=== PATIENT | male | born 1950 | race Caucasian/White ===

== ENCOUNTER 2017-01-25 05:04 | Inpatient (IN) | payer MEDICARE, OTHER ==
--- NOTE | 2017-01-25 05:15 | C.PDOC ---
History Of Present Illness Pt woke up with chest pain., Sharp stabbing , pressure. Received asa and 2 sl ntg by ems. Time Seen by Provider: 01/25/17 05:10 Chief Complaint (Nursing): Chest Pain History Per: Patient History/Exam Limitations: no limitations Onset/Duration Of Symptoms: Mins Current Symptoms Are (Timing): Still Present Context: Other Severity: Severe Pain Scale Rating Of: 7 Quality: Sharp, Pressure Associated Symptoms: denies: Nausea, Dyspnea Modifying Factors: None Exacerbating Factors: None Alleviating Factors: None Nitro Therapy Administered: 2 Recent travel outside of the [place]: No Additional History Per: EMS Past Medical History Reviewed: Historical Data, Nursing Documentation, Vital Signs Vital Signs: Last Vital Signs Temp 98.0 F 01/25/17 05:07 Pulse 101 H 01/25/17 05:07 Resp 16 01/25/17 05:07 BP 130/90 01/25/17 05:07 Pulse Ox 99 01/25/17 05:07 Family History: States: No Known Family Hx Review Of Systems Constitutional: Negative for: Fever, Chills Eyes: Negative for: Redness ENT: Negative for: Throat Pain Cardiovascular: Positive for: Chest Pain. Negative for: Palpitations Respiratory: Negative for: Shortness of Breath Gastrointestinal: Negative for: Nausea, Vomiting Genitourinary: Negative for: Hematuria Musculoskeletal: Negative for: Neck Pain Skin: Negative for: Rash, Lesions, Jaundice Neurological: Negative for: Weakness Psych: Negative for: Anxiety Physical Exam - Physical Exam Appears: In Acute Distress Skin: Warm, Dry Head: Normacephalic Eye(s): bilateral: Normal Inspection, PERRL, EOMI Oral Mucosa: Moist Neck: Supple Chest: Symmetrical Cardiovascular: Rhythm Regular Respiratory: No Rales, No Rhonchi, No Wheezing Gastrointestinal/Abdominal: Soft, No Tenderness, No Distention Back: No CVA Tenderness Extremity: Normal ROM Extremity: Bilateral: Atraumatic Pulses: Left Dorsalis Pedis: Normal, Right Dorsalis Pedis: Normal Neurological/Psych: Oriented x3, Normal Speech, Normal Cognition Gait: Unable To Assess ED Course And Treatment ECG: Interpreted By Me, Viewed By Me ECG Rhythm: Sinus Rhythm (68), ST/T Changes (ant wall mi) Pulse Ox Interpretation: Normal - Radiology CXR: Interpreted by Me, Viewed By Me Progress Note: 5:[address] dominguez and sent ekg. Code heart called. 5: [address] dominguez at bedside Critical Care Time - Critical Care Note Total Time (in mins): 30 Documented critical care: time excludes all time spent performing seperately billable procedures. Disposition Discussed With : Lalo Ruiz Comment: accepted the pt on his service and tookover the care at 5:42 AM Doctor Will See Patient In The: ED Counseled Patient/Family Regarding: Studies Performed, Diagnosis - Disposition Disposition: HOSPITALIZED Disposition Time: 05:19 Condition: GUARDED Forms: [employer] (Ukrainian) - POA Present On Arrival: None - Clinical Impression Clinical Impression: Acute anterior wall IA Decision To Admit - Pt Status Changed To: Hospital Disposition Of: Inpatient - Admit Certification Admit to Inpatient:: After my assessment, the patient will require hospitalization for at least two midnights. This is because of the severity of symptoms shown, intensity of services needed, and/or the medical risk in this patient being treated as an outpatient. - InPatient: Physician Admission Certification: I certify that this patient requires 2 or more midnights of care for the following reason:: After my assessment, the patient will require hospitalization for at least two midnights. This is because of the severity of symptoms shown, intensity of services needed, and/or the medical risk in this patient being treated as an outpatient. - . Bed Request Type: ICU Admitting Physician: Lalo Ruiz Patient Diagnosis: Acute anterior wall IA
[2017-01-25] MEDS ORDERED: Aspirin 325 mg EC Tablets PO STA (05:16)
[2017-01-25] MEDS ORDERED: Heparin25000 units/250ml 1/2NS 250 ML IV STA (05:16)
[2017-01-25] MEDS ORDERED: Heparin25000 units/250ml 1/2NS 25,000 UNITS/250 ML BAG IV ONE (05:25)
[2017-01-25] MEDS ORDERED: Morphine 4 MG/ML VIAL ONE (05:30)
[2017-01-25] MEDS ORDERED: Midazolam 2 MG/2 ML VIAL ONE (05:43)
[2017-01-25] MEDS ORDERED: Iodixanol 320 MG/ML 200 ML BOTTLE IV ONE (05:43)
[2017-01-25] MEDS ORDERED: Lidocaine 2 Grams in D5W 2,000 MG/500 ML BAG IV ONE (05:45)
[2017-01-25] MEDS ORDERED: DOPamine 400mg/250ml D5W 0 MG/0 ML BAG IV ONE (05:46)
[2017-01-25] MEDS ORDERED: Phenylephrine 10 mg/ml Inj ONE (05:46)
[2017-01-25 05:51] LABS: CHLORIDE 102 mmol/L (98-107); POTASSIUM 3.7 mmol/L (3.6-5.2); SODIUM 139 mmol/L (132-148)
[2017-01-25 05:53] LABS: BILIRUBIN,TOTAL 0.5 mg/dL (0.2-1.3); CARBON DIOXIDE 20 mmol/L (22-30); GFR AFRICAN-AMERICAN > 60
[2017-01-25 05:54] LABS: ALB/GLOB RATIO 1.3 (1.0-2.1); ALKALINE PHOSPHATASE 66 U/L (38-126); ALT/SGPT 29 U/L (21-72); AST/SGOT 34 U/L (17-59); BLOOD UREA NITROGEN 26 mg/dL (9-20); CALCIUM 9.5 mg/dl (8.6-10.4); GLUCOSE,RANDOM 147 mg/dL (75-110); TOTAL PROTEIN 7.7 g/dL (6.3-8.3)
[2017-01-25] MEDS ORDERED: Eptifibatide 0.75 mg/ml 75 MG/100 ML BOTTLE IV ONE (06:14)
[2017-01-25] MEDS ORDERED: Eptifibatide 20 mg/10mL Inj IVP ONE (06:15)
[2017-01-25] MEDS ORDERED: Nitroglycerin 50mg in D5W 50 MG/250 ML BOTTLE IV ONE (06:21)
--- NOTE | 2017-01-25 06:46 | CP.PCM.HP ---
<Thomas Buenrostro - Last Filed: 01/25/17 06:49> History of Present Illness - History of Present Illness History of Present Illness: PGY1 Note for Dr. Ruiz HPI: Patient is a 66 y/o male with a PMH of HTN, HLD who comes to the ER with a CC of chest pain that he woke up with at 0430. Patient has never had this pain before. He says it is most on the left side. He was brought in by ambulance where he said the pain was 10/10. He was given 2 doses of SL nitro and the pain was reduced to a 8/10. In the ER a Code Hear was called and Dr. Feng was alerted. EKG showed ST elevations in the the Anterior and lateral leads. He was given 325mg ASA, 4g morphine, 180mg brillinta, heparin bolus 5000K and a heparin drip at a rate of 9.3. Patient was placed on oxygen and brought to the laborer hoisting. PMH: HTN, HLD PSH: Appy? FH: none SH: doesnt smoke Meds: Coreg, Enalapril, allopurinol Allergies: None Present on Admission - Present on Admission Any Indicators Present on Admission: No History of DVT/PE: No History of Uncontrolled Diabetes: No Urinary Catheter: No Decubitus Ulcer Present: No History Surgical Site Infection Following: None Review of Systems - Constitutional Constitutional: As Per HPI - EENT Eyes: As Per HPI Ears: As Per HPI Nose/Mouth/Throat: As Per HPI - Cardiovascular Cardiovascular: As Per HPI - Respiratory Respiratory: As Per HPI - Gastrointestinal Gastrointestinal: As Per HPI - Genitourinary Genitourinary: As Per HPI - Reproductive: Male Reproductive:Male: As Per HPI - Musculoskeletal Musculoskeletal: As Per HPI - Integumentary Integumentary: As Per HPI - Neurological Neurological: As Per HPI - Psychiatric Psychiatric: As Per HPI - Endocrine Endocrine: As Per HPI - Hematologic/Lymphatic Hematologic: As Per HPI Past Patient History - Past Social History Smoking Status: Never Smoked - CARDIAC Hx Hypertension: Yes - MUSCULOSKELETAL/RHEUMATOLOGICAL Hx Gout: Yes - PSYCHIATRIC Hx Substance Use: No - SURGICAL HISTORY Hx Appendectomy: Yes Meds Allergies/Adverse Reactions: Allergies Allergy/AdvReac Type Severity Reaction Status Date / Time No Known Allergies Allergy Verified 01/25/17 05:13 Physical Exam - Constitutional Appears: In Acute Distress - Head Exam Head Exam: ATRAUMATIC, NORMAL INSPECTION, NORMOCEPHALIC - Eye Exam Eye Exam: EOMI Pupil Exam: NORMAL ACCOMODATION, PERRL - ENT Exam ENT Exam: Mucous Membranes Moist - Respiratory Exam Respiratory Exam: Clear to Auscultation Bilateral, NORMAL BREATHING PATTERN. absent: Rales, Wheezes, Stridor - Cardiovascular Exam Cardiovascular Exam: REGULAR RHYTHM - GI/Abdominal Exam GI & Abdominal Exam: Normal Bowel Sounds, Soft. absent: Distended, Tenderness - Extremities Exam Extremities exam: Negative for: joint swelling, tenderness - Neurological Exam Neurological exam: Alert, Oriented x3 - Psychiatric Exam Psychiatric exam: Normal Affect, Normal Mood - Skin Skin Exam: Dry, Intact, Normal Color, Warm Results - Vital Signs Recent Vital Signs: Last Vital Signs Temp 98.0 F 01/25/17 05:07 Pulse 62 01/25/17 05:37 Resp 20 01/25/17 05:37 BP 133/95 H 01/25/17 05:37 Pulse Ox 100 01/25/17 05:37 - Labs Result Diagrams: 01/25/17 05:36 Labs: Laboratory Results - last 24 hr 01/25/17 01/25/17 01/25/17 05:36 05:36 05:41 PT 10.7 INR 1.0 APTT 30 Sodium 139 Potassium 3.7 Chloride 102 Carbon Dioxide 20 L Anion Gap 21 H BUN 26 H Creatinine 1.0 Est GFR ( Amer) > 60 Est GFR (Non-Af Amer) > 60 Random Glucose 147 H Calcium 9.5 Total Bilirubin 0.5 AST 34 ALT 29 Alkaline Phosphatase 66 Total Protein 7.7 Albumin 4.4 Globulin 3.3 Albumin/Globulin Ratio 1.3 Blood Type O POSITIVE Antibody Screen Negative Assessment & Plan - Assessment and Plan (Free Text) Assessment: Anterolateral NV (Code Heart) * Heparin, Morphine, ASA, Brilinta, O2 SL Nitro given in ER * Cards (Jung) called * Patient went to laborer hoisting * Meds per Cards Elevated Glucose * Accuchecks - Date & Time Date: 01/25/17 Time: 06:58 <Lalo Ruiz - Last Filed: 01/25/17 07:30> Results - Vital Signs Recent Vital Signs: Last Vital Signs Temp 98.0 F 01/25/17 05:07 Pulse 62 01/25/17 05:37 Resp 20 01/25/17 05:37 BP 133/95 H 01/25/17 05:37 Pulse Ox 100 01/25/17 05:37 - Labs Result Diagrams: 01/25/17 05:36 Labs: Laboratory Results - last 24 hr 01/25/17 01/25/17 01/25/17 05:36 05:36 05:36 PT 10.7 INR 1.0 APTT 30 Sodium 139 Potassium 3.7 Chloride 102 Carbon Dioxide 20 L Anion Gap 21 H BUN 26 H Creatinine 1.0 Est GFR ( Amer) > 60 Est GFR (Non-Af Amer) > 60 Random Glucose 147 H Calcium 9.5 Total Bilirubin 0.5 AST 34 ALT 29 Alkaline Phosphatase 66 Troponin I < 0.0120 Total Protein 7.7 Albumin 4.4 Globulin 3.3 Albumin/Globulin Ratio 1.3 Blood Type Antibody Screen 01/25/17 05:41 PT INR APTT Sodium Potassium Chloride Carbon Dioxide Anion Gap BUN Creatinine Est GFR ( Amer) Est GFR (Non-Af Amer) Random Glucose Calcium Total Bilirubin AST ALT Alkaline Phosphatase Troponin I Total Protein Albumin Globulin Albumin/Globulin Ratio Blood Type O POSITIVE Antibody Screen Negative Attending/Attestation - Attestation I have personally seen and examined this patient.: Yes I have fully participated in the care of the patient.: Yes I have reviewed all pertinent clinical information: Yes Notes (Text): Assessment Anterior STEMI, s/p cath 100% LAD occlusion, s/p long FLOR stent and thrombectomy, received ASA, Brilianta, started on Integrillin for 12 hr H/o HTN H/o Gout Plan Observe post pci in icu Cardioprotective meds Coreg 3.125 bid, Enalpril 5mg bid from tomorrow, ASA 81mg daily from tomorrow, Brilianta 90mg bid, crestor 40mg daily, integrillin for 12 hr, continue home dose allopurinol Echo GI prophylaxis protonix 40mg DVT prophylaxis heparin subq from tomorrow Labs See orders for detail
--- NOTE | 2017-01-25 06:57 | CP.PCM.PN ---
Subjective - Date & Time of Evaluation Date of Evaluation: 01/25/17 Time of Evaluation: 06:00 - Subjective Subjective: Assessment * Anterior STEMI, s/p cath 100% LAD occlusion, s/p long FLOR stent and thrombectomy, received ASA, Brilianta, started on Integrillin for 12 hr * H/o HTN * H/o Gout Plan * Observe post pci in icu * Cardioprotective meds Coreg 3.125 bid, Enalpril 5mg bid from tomorrow, ASA 81mg daily from tomorrow, Brilianta 90mg bid, crestor 40mg daily, integrillin for 12 hr, continue home dose allopurinol * Echo * GI prophylaxis protonix 40mg * DVT prophylaxis heparin subq from tomorrow * Labs * See orders for detail Objective - Vital Signs/Intake and Output Vital Signs (last 24 hours): Temp Pulse Resp BP Pulse Ox 98.0 F 62 20 133/95 H 100 01/25/17 05:07 01/25/17 05:37 01/25/17 05:37 01/25/17 05:37 01/25/17 05:37 - Medications Medications: Current Medications Acetaminophen (Tylenol 325mg Tab) 650 mg PO Q6 PRN PRN Reason: Pain, moderate (4-7) Allopurinol (Zyloprim) 300 mg PO DAILY [facility] Aspirin (Aspirin Chewable) 81 mg PO DAILY [facility] Carvedilol (Coreg) 3.125 mg PO BID [facility] Enalapril Maleate (Vasotec) 5 mg PO DAILY [facility] Heparin Sodium (Porcine) (Heparin) 5,000 units SC Q8 [facility] Heparin Sodium/Sodium Chloride (Heparin 09257 Units/250ml 1/2 Normal Saline) 25 ,000 units in 250 mls @ 10 mls/hr IV ONCE ONE PRN Reason: 1,000 UNITS/HR Stop: 01/26/17 06:24 Last Admin: 01/25/17 05:38 Dose: 10 mls/hr Sodium Chloride (Sodium Chloride 0.9%) 1,000 mls @ 100 mls/hr IV .Q10H [facility] Pantoprazole Sodium (Protonix Ec Tab) 40 mg PO DAILY [facility] Rosuvastatin Calcium (Crestor) 40 mg PO DAILY [facility] Ticagrelor (Brilinta) 90 mg PO BID [facility] - Labs Labs: 01/25/17 05:36 PT 10.7 SECONDS (9.7-12.2) 01/25/17 05:36 INR 1.0 01/25/17 05:36 APTT 30 SECONDS (21-34) 01/25/17 05:36
--- NOTE | 2017-01-25 07:43 | CP.PCM.CON ---
History of Present Illness - History of Present Illness History of Present Illness: Patient presented with Acute Anterolateral STEMI Code heart was activated After informed consent LHC and LAD intervention with FLOR performed 1. L Main: Patent 2. LAD: Proximal 100% with HEATHER 0 flow 3. L Cx: Patent 4. RCA: Dominant and patent 5. LV: Post intervention: Normal EF. EDP 10, No AV gradient LAD: Lesion fixed with 3.0 x 38 Xcience Alpine FLOR with excellent final angiographic result and HEATHER 3 flow Further plan joselo d/w discussed with the ICU team Post procedure details explained to the patient and the family ( and daughter) Past Patient History - Past Social History Smoking Status: Never Smoked - CARDIAC Hx Hypertension: Yes - MUSCULOSKELETAL/RHEUMATOLOGICAL Hx Gout: Yes - PSYCHIATRIC Hx Substance Use: No - SURGICAL HISTORY Hx Appendectomy: Yes Meds Allergies/Adverse Reactions: Allergies Allergy/AdvReac Type Severity Reaction Status Date / Time No Known Allergies Allergy Verified 01/25/17 05:13 - Medications Medications: Current Medications Acetaminophen (Tylenol 325mg Tab) 650 mg PO Q6 PRN PRN Reason: Pain, moderate (4-7) Allopurinol (Zyloprim) 300 mg PO DAILY [facility] Aspirin (Aspirin Chewable) 81 mg PO DAILY [facility] Carvedilol (Coreg) 3.125 mg PO BID [facility] Enalapril Maleate (Vasotec) 5 mg PO DAILY [facility] Heparin Sodium (Porcine) (Heparin) 5,000 units SC Q8 [facility] Sodium Chloride (Sodium Chloride 0.9%) 1,000 mls @ 100 mls/hr IV .Q10H [facility] Pantoprazole Sodium (Protonix Ec Tab) 40 mg PO DAILY [facility] Rosuvastatin Calcium (Crestor) 40 mg PO DAILY [facility] Ticagrelor (Brilinta) 90 mg PO BID [facility] Results - Vital Signs Recent Vital Signs: Last Vital Signs Temp 98.0 F 01/25/17 05:07 Pulse 62 01/25/17 05:37 Resp 20 01/25/17 05:37 BP 133/95 H 01/25/17 05:37 Pulse Ox 100 01/25/17 05:37 - Labs Result Diagrams: 01/25/17 05:36 Labs: Laboratory Results - last 24 hr 01/25/17 01/25/17 01/25/17 05:36 05:36 05:36 PT 10.7 INR 1.0 APTT 30 Sodium 139 Potassium 3.7 Chloride 102 Carbon Dioxide 20 L Anion Gap 21 H BUN 26 H Creatinine 1.0 Est GFR ( Amer) > 60 Est GFR (Non-Af Amer) > 60 Random Glucose 147 H Calcium 9.5 Total Bilirubin 0.5 AST 34 ALT 29 Alkaline Phosphatase 66 Troponin I < 0.0120 Total Protein 7.7 Albumin 4.4 Globulin 3.3 Albumin/Globulin Ratio 1.3 Blood Type Antibody Screen 01/25/17 05:41 PT INR APTT Sodium Potassium Chloride Carbon Dioxide Anion Gap BUN Creatinine Est GFR ( Amer) Est GFR (Non-Af Amer) Random Glucose Calcium Total Bilirubin AST ALT Alkaline Phosphatase Troponin I Total Protein Albumin Globulin Albumin/Globulin Ratio Blood Type O POSITIVE Antibody Screen Negative
[2017-01-25 07:55] LABS: BASO % 0.3 % (0.0-2.0); EOS # 0.1 K/uL (0.0-0.7); EOS % 1.2 % (0.0-4.0); HEMATOCRIT 40.6 % (35.0-51.0); LYMPH % 51.5 % (20.0-40.0); MEAN CELL VOLUME 86.1 fL (80.0-94.0); MEAN CORPUSCULAR HEMOGLOBIN 30.2 pg (27.0-31.0); MEAN PLATELET VOLUME 10.4 fL (7.2-11.7); MONO # 1.2 K/uL (0.0-0.8); MONO % 12.6 % (0.0-10.0); RED CELL DISTRIBUTION WIDTH 13.2 % (11.5-14.5); WHITE BLOOD COUNT 9.8 K/uL (4.8-10.8)
[2017-01-25] MEDS: Sodium Chloride 0.9% 1,000 ML IV SCH ×2 (07:55→18:05)
--- NOTE | 2017-01-25 08:06 | RAD ---
PROCEDURE: CHEST RADIOGRAPH, 1 VIEW HISTORY: chest pain COMPARISON: None available. FINDINGS: LUNGS: Mild venous congestion. PLEURA: No pneumothorax or pleural fluid seen. CARDIOVASCULAR: Normal. OSSEOUS STRUCTURES: No significant abnormalities. VISUALIZED UPPER ABDOMEN: Normal. OTHER FINDINGS: None. IMPRESSION: Mild venous congestion.
[2017-01-25] MEDS: Eptifibatide 0.75 mg/ml 75 MG/100 ML BOTTLE IV SCH ×3 (08:17→16:07)
--- NOTE | 2017-01-25 08:41 | CP.CCUPN ---
CCU Subjective - Physician Review Events Since Last Encounter (Free Text): 01/25/17 08:40 HPI: Patient is a 66 y/o male with a PMH of HTN, HLD who comes to the ER with a CC of chest pain that he woke up with at 0430. Patient has never had this pain before. He says it is most on the left side. He was brought in by ambulance where he said the pain was 10/10. He was given 2 doses of SL nitro and the pain was reduced to a 8/10. In the ER a Code Hear was called and Dr. Feng was alerted. EKG showed ST elevations in the the Anterior and lateral leads. He was given 325mg ASA, 4g morphine, 180mg brillinta, heparin bolus 5000K and a heparin drip at a rate of 9.3. Patient was placed on oxygen and brought to the fence laborer. PMH: HTN, HLD PSH: Appy? FH: none SH: doesnt smoke Meds: Coreg, Enalapril, allopurinol Allergies: None Vital signs reviewed No neck vein distention noted Chest good air entry bilaterally, no wheezing or rales noted CVS regular heart sound, no murmur noted Abdomen soft, nontender. Extremities no pedal edema [employer] alert awake oriented 3, no functional neurological deficit On Integrilin drip. Assessment and recommendation: 66 male hypertension high cholesterol admitted with the chest pain. ST elevation. Status post a stent. Closely monitor. Cardiology follow-up CCU Objective - Vital Signs / Intake & Output Vital Signs (Last 4 hours): Vital Signs Temp Pulse Resp BP Pulse Ox 01/25/17 08:00 97.6 F 70 12 100 01/25/17 07:52 75 15 119/77 100 01/25/17 07:50 78 13 100 01/25/17 07:40 71 10 L 100 01/25/17 07:37 69 15 99/67 L 99 01/25/17 07:30 97.6 F 67 18 117/79 99 01/25/17 07:20 67 13 100 01/25/17 07:10 71 14 100 01/25/17 07:00 71 9 L 100 01/25/17 05:37 62 20 133/95 H 100 01/25/17 05:32 63 20 133/87 100 01/25/17 05:12 64 130/90 01/25/17 05:07 98.0 F 101 H 16 130/90 99 Intake and Output (Last 8hrs): Intake & Output 01/24/17 01/25/17 01/25/17 22:59 06:59 14:59 Intake Total 112.3 Output Total 325 Balance -212.7 Weight 170 lb Intake: Intake, IV Amount 112.3 Right Antecubital 100 Right Hand 12.3 Output: Urine 325 Urine, Voided 325 - Medications Active Medications: Active Medications Generic Name Dose Route Start Last Admin Trade Name Freq PRN Reason Stop Dose Admin Acetaminophen 650 mg 01/25/17 06:43 Tylenol 325mg Tab PO Q6 PRN Pain, moderate (4-7) Allopurinol 300 mg 01/25/17 10:00 Zyloprim PO DAILY [facility] Aspirin 81 mg 01/26/17 10:00 Aspirin Chewable PO DAILY [facility] Carvedilol 3.125 mg 01/25/17 10:00 Coreg PO BID [facility] Enalapril Maleate 5 mg 01/26/17 10:00 Vasotec PO DAILY [facility] Heparin Sodium (Porcine) 5,000 units 01/26/17 10:00 Heparin SC Q8 [facility] Sodium Chloride 1,000 mls @ 100 mls/hr 01/25/17 06:45 01/25/17 07:55 Sodium Chloride 0.9% IV 100 mls/hr .Q10H [facility] Administration Eptifibatide 75 mg in 100 mls @ 12.029 mls/hr 01/25/17 07:45 01/25/17 08:17 Integrilin IV 01/25/17 19:46 12.029 mls/hr .Q8H19M [facility] Administration 2 MCG/KG/MIN Pantoprazole Sodium 40 mg 01/25/17 10:00 Protonix Ec Tab PO DAILY [facility] Rosuvastatin Calcium 40 mg 01/25/17 10:00 Crestor PO DAILY [facility] Ticagrelor 90 mg 01/25/17 18:00 Brilinta PO BID [facility] - Patient Studies Lab Studies: Lab Studies 01/25/17 01/25/17 01/25/17 Range/Units 07:56 05:41 05:36 WBC (4.8-10.8) K/uL RBC (4.40-5.90) Mil/uL Hgb (12.0-18.0) g/dL Hct (35.0-51.0) % MCV (80.0-94.0) fL MCH (27.0-31.0) pg MCHC (33.0-37.0) g/dL RDW (11.5-14.5) % Plt Count (130-400) K/uL MPV (7.2-11.7) fL Neut % (Auto) (50.0-75.0) % Lymph % (Auto) (20.0-40.0) % [place] % (Auto) (0.0-10.0) % Eos % (Auto) (0.0-4.0) % Baso % (Auto) (0.0-2.0) % Neut # (1.8-7.0) K/uL Lymph # (1.0-4.3) K/uL [place] # (0.0-0.8) K/uL Eos # (0.0-0.7) K/uL Baso # (0.0-0.2) K/uL PT (9.7-12.2) SECONDS INR APTT (21-34) SECONDS Sodium (132-148) mmol/L Potassium (3.6-5.2) mmol/L Chloride (98-107) mmol/L Carbon Dioxide (22-30) mmol/L Anion Gap (10-20) BUN (9-20) mg/dL Creatinine (0.8-1.5) MG/DL Est GFR ( Amer) Est GFR (Non-Af Amer) POC Glucose (mg/dL) 129 H (65-110) mg/dL Random Glucose (75-110) mg/dL Calcium (8.6-10.4) mg/dl Total Bilirubin (0.2-1.3) mg/dL AST (17-59) U/L ALT (21-72) U/L Alkaline Phosphatase (38-126) U/L Troponin I < 0.0120 (0.00-0.120) ng/mL Total Protein (6.3-8.3) g/dL Albumin (3.5-5.0) g/dL Globulin (2.2-3.9) gm/dL Albumin/Globulin Ratio (1.0-2.1) Blood Type O POSITIVE Antibody Screen Negative 09/01/25/17 01/25/17 Range/Units 05:36 05:36 05:36 WBC 9.8 (4.8-10.8) K/uL RBC 4.71 (4.40-5.90) Mil/uL Hgb 14.2 (12.0-18.0) g/dL Hct 40.6 (35.0-51.0) % MCV 86.1 D (80.0-94.0) fL MCH 30.2 (27.0-31.0) pg MCHC 35.0 (33.0-37.0) g/dL RDW 13.2 (11.5-14.5) % Plt Count 208 (130-400) K/uL MPV 10.4 (7.2-11.7) fL Neut % (Auto) 34.4 L (50.0-75.0) % Lymph % (Auto) 51.5 H (20.0-40.0) % [place] % (Auto) 12.6 H (0.0-10.0) % Eos % (Auto) 1.2 (0.0-4.0) % Baso % (Auto) 0.3 (0.0-2.0) % Neut # 3.4 (1.8-7.0) K/uL Lymph # 5.0 H (1.0-4.3) K/uL [place] # 1.2 H (0.0-0.8) K/uL Eos # 0.1 (0.0-0.7) K/uL Baso # 0.0 (0.0-0.2) K/uL PT 10.7 (9.7-12.2) SECONDS INR 1.0 APTT 30 (21-34) SECONDS Sodium 139 (132-148) mmol/L Potassium 3.7 (3.6-5.2) mmol/L Chloride 102 (98-107) mmol/L Carbon Dioxide 20 L (22-30) mmol/L Anion Gap 21 H (10-20) BUN 26 H (9-20) mg/dL Creatinine 1.0 (0.8-1.5) MG/DL Est GFR ( Amer) > 60 Est GFR (Non-Af Amer) > 60 POC Glucose (mg/dL) (65-110) mg/dL Random Glucose 147 H (75-110) mg/dL Calcium 9.5 (8.6-10.4) mg/dl Total Bilirubin 0.5 (0.2-1.3) mg/dL AST 34 (17-59) U/L ALT 29 (21-72) U/L Alkaline Phosphatase 66 (38-126) U/L Troponin I (0.00-0.120) ng/mL Total Protein 7.7 (6.3-8.3) g/dL Albumin 4.4 (3.5-5.0) g/dL Globulin 3.3 (2.2-3.9) gm/dL Albumin/Globulin Ratio 1.3 (1.0-2.1) Blood Type Antibody Screen Laboratory Results - last 24 hr 01/25/17 01/25/17 01/25/17 05:36 05:36 05:36 WBC 9.8 RBC 4.71 Hgb 14.2 Hct 40.6 MCV 86.1 D MCH 30.2 MCHC 35.0 RDW 13.2 Plt Count 208 MPV 10.4 Neut % (Auto) 34.4 L Lymph % (Auto) 51.5 H [place] % (Auto) 12.6 H Eos % (Auto) 1.2 Baso % (Auto) 0.3 Neut # 3.4 Lymph # 5.0 H [place] # 1.2 H Eos # 0.1 Baso # 0.0 PT 10.7 INR 1.0 APTT 30 Sodium 139 Potassium 3.7 Chloride 102 Carbon Dioxide 20 L Anion Gap 21 H BUN 26 H Creatinine 1.0 Est GFR ( Amer) > 60 Est GFR (Non-Af Amer) > 60 POC Glucose (mg/dL) Random Glucose 147 H Calcium 9.5 Total Bilirubin 0.5 AST 34 ALT 29 Alkaline Phosphatase 66 Troponin I Total Protein 7.7 Albumin 4.4 Globulin 3.3 Albumin/Globulin Ratio 1.3 Blood Type Antibody Screen 01/25/17 01/25/17 01/25/17 05:36 05:41 07:56 WBC RBC Hgb Hct MCV MCH MCHC RDW Plt Count MPV Neut % (Auto) Lymph % (Auto) [place] % (Auto) Eos % (Auto) Baso % (Auto) Neut # Lymph # [place] # Eos # Baso # PT INR APTT Sodium Potassium Chloride Carbon Dioxide Anion Gap BUN Creatinine Est GFR ( Amer) Est GFR (Non-Af Amer) POC Glucose (mg/dL) 129 H Random Glucose Calcium Total Bilirubin AST ALT Alkaline Phosphatase Troponin I < 0.0120 Total Protein Albumin Globulin Albumin/Globulin Ratio Blood Type O POSITIVE Antibody Screen Negative EKG/Cardiology Studies: Cardiology / EKG Studies 01/25/17 05:16 ELECTROCARDIOGRAM Stat Comment: Mode Of Transportation: BED Reason For Exam: chest pain Critical Care Progress Note - Nutrition Nutrition: Nutrition Category Date Time Status Heart Healthy Diet [DIET] Diets 01/25/17 Breakfast Active
[2017-01-25 09:05] LABS: CHOLESTEROL 124 mg/dL (0-199)
[2017-01-25 09:06] LABS: ALB/GLOB RATIO 1.3 (1.0-2.1); ALKALINE PHOSPHATASE 61 U/L (38-126); ALT/SGPT 41 U/L (21-72); AST/SGOT 65 U/L (17-59); BILIRUBIN,DIRECT 0.2 mg/dL (0.0-0.4); BILIRUBIN,TOTAL 0.6 mg/dL (0.2-1.3); MAGNESIUM 1.9 mg/dL (1.6-2.3); PHOSPHOROUS 1.3 mg/dL (2.5-4.5); TOTAL PROTEIN 6.3 g/dL (6.3-8.3); URIC ACID 5.3 mg/dL (3.5-8.5)
[2017-01-25 09:45] LABS: CHLORIDE 104 mmol/L (98-107)
[2017-01-25 09:46] LABS: POTASSIUM 3.7 mmol/L (3.6-5.2); SODIUM 138 mmol/L (132-148)
[2017-01-25 09:48] LABS: GFR AFRICAN-AMERICAN > 60
[2017-01-25 09:49] LABS: BLOOD UREA NITROGEN 24 mg/dL (9-20); CALCIUM 8.4 mg/dl (8.6-10.4); CARBON DIOXIDE 21 mmol/L (22-30); GLUCOSE,RANDOM 101 mg/dL (75-110)
[2017-01-25] MEDS: Pantoprazole 40 mg EC Tab PO SCH (10:13)
[2017-01-25 11:53] LABS: BASO % 0.2 % (0.0-2.0); EOS % 0.2 % (0.0-4.0); HEMATOCRIT 38.5 % (35.0-51.0); LYMPH # 2.2 K/uL (1.0-4.3); LYMPH % 30.2 % (20.0-40.0); MEAN CELL VOLUME 86.7 fL (80.0-94.0); MEAN CORPUSCULAR HEMOGLOBIN 29.9 pg (27.0-31.0); MEAN CORPUSCULAR HGB CONC 34.5 g/dL (33.0-37.0); MEAN PLATELET VOLUME 10.1 fL (7.2-11.7); MONO # 0.7 K/uL (0.0-0.8); MONO % 9.4 % (0.0-10.0); RED CELL DISTRIBUTION WIDTH 13.2 % (11.5-14.5); WHITE BLOOD COUNT 7.4 K/uL (4.8-10.8)
[2017-01-25] MEDS ORDERED: Oxycodone/Acetaminophen 5/325 mg Tab PO PRN (12:00)
--- NOTE | 2017-01-25 12:08 | CP.PCM.PCO ---
Physician Communication Note - Physician Communication Note Physician Communication Note: I updated his PMD Dr Justin Real.Patient is S/P stenting to prox LAD.
--- NOTE | 2017-01-25 12:11 | CP.PCM.PN ---
Subjective - Date & Time of Evaluation Date of Evaluation: 01/25/17 Time of Evaluation: 12:00 - Subjective Subjective: This is a BRIEF NOTE ONLY: Please see today's H&P for further details. The patient is S/P FLOR to the proximal LAD. Currently on an integrillin ggt He reports that currently he feels well. Family is present at bedside. I spoke with the patient's PMD and updated him. Objective - Vital Signs/Intake and Output Vital Signs (last 24 hours): Temp Pulse Resp BP Pulse Ox 97.6 F 66 12 122/79 100 01/25/17 08:00 01/25/17 11:10 01/25/17 11:10 01/25/17 11:02 01/25/17 11:10 Intake and Output: 01/25/17 01/25/17 06:59 18:59 Intake Total 761.5 Output Total 775 Balance -13.5 - Medications Medications: Current Medications Acetaminophen (Tylenol 325mg Tab) 650 mg PO Q6 PRN PRN Reason: Pain, moderate (4-7) Allopurinol (Zyloprim) 300 mg PO DAILY [facility] Aspirin (Aspirin Chewable) 81 mg PO DAILY [facility] Carvedilol (Coreg) 3.125 mg PO BID [facility] Last Admin: 01/25/17 10:13 Dose: 3.125 mg Enalapril Maleate (Vasotec) 5 mg PO DAILY [facility] Heparin Sodium (Porcine) (Heparin) 5,000 units SC Q8 [facility] Sodium Chloride (Sodium Chloride 0.9%) 1,000 mls @ 100 mls/hr IV .Q10H [facility] Last Admin: 01/25/17 07:55 Dose: 100 mls/hr Eptifibatide (Integrilin) 75 mg in 100 mls @ 12.029 mls/hr IV .Q8H19M [facility] PRN Reason: 2 MCG/KG/MIN Stop: 01/25/17 19:46 Last Admin: 01/25/17 08:17 Dose: 12.029 mls/hr Influenza Virus Vaccine (Afluria) 45 mcg IM .ONCE ONE Stop: 01/27/17 10:01 Oxycodone/Acetaminophen (Percocet 5/325 Mg Tab) 1 tab PO Q4H PRN PRN Reason: Pain, severe (8-10) Stop: 09/27/17 12:01 Pantoprazole Sodium (Protonix Ec Tab) 40 mg PO DAILY [facility] Last Admin: 01/25/17 10:13 Dose: 40 mg Pneumococcal Polyvalent Vaccine (Pneumovax 23 Vaccine) 0.5 ml IM .ONCE ONE Stop: 01/27/17 10:01 Rosuvastatin Calcium (Crestor) 40 mg PO [facility] Ticagrelor (Brilinta) 90 mg PO BID [facility] - Labs Labs: 01/25/17 11:50 01/25/17 08:10 PT 10.7 SECONDS (9.7-12.2) 01/25/17 05:36 INR 1.0 01/25/17 05:36 APTT 30 SECONDS (21-34) 01/25/17 05:36
[2017-01-25 14:33] LABS: RBC URINE 1 /hpf (0-3); URINE BILIRUBIN NEGATIVE (NEGATIVE); URINE BLOOD 1+ (NEGATIVE); URINE COLOR Straw (YELLOW); URINE GLUCOSE (UA) NORMAL (Normal); URINE KETONE NEGATIVE (NEGATIVE); URINE LEUKOCYTE ESTERASE NEG Leu/uL (Negative); URINE PROTEIN NEGATIVE (NEGATIVE); URINE UROBILINOGEN NORMAL mg/dL (0.2-1.0); WBC URINE 1 /hpf (0-5)
[2017-01-25] MEDS: Magnesium Sulfate 1 gm in D5W 1 GM/100 ML BAG IVPB SCH ×2 (14:36→15:11)
--- NOTE | 2017-01-26 05:18 | CARDCATH ---
PROCEDURE DATE: 01/25/2017 PROCEDURES: 1. Left heart catheterization. 2. Coronary angiography. 3. Left anterior descending coronary artery, balloon angioplasty, and drug-eluting stent placements. 4. Radiological supervision and interpretation of coronary angiography, left ventricular angiography and left anterior descending coronary artery stent placement. CLINICAL INDICATIONS: 1. Acute anterior wall ST elevation myocardial infarction. 2. Coronary artery disease. 3. Hypertension. 4. Hyperlipidemia. 5. Gout. REFERRING PHYSICIAN: Dr. Christel Quesada. PERFORMING PHYSICIAN: Dr. Thomas Feng. PROCEDURE: After informed consent, the patient was prepped and draped in the usual sterile fashion. A 2% lidocaine was given in the right groin for local anesthesia. Using micropuncture technique, a 6-Kosovan sheath was introduced in the right common femoral artery. Prior to the procedure, the patient was preloaded with aspirin, Brilinta, and IV heparin. ACT was maintained above 250 throughout the procedure. Right coronary artery was engaged using No-Tox 6-Kosovan diagnostic catheter. Right coronary angiography was performed. Proximal, mid, and distal right coronary artery and PDA, PLV branches are patent. It is a dominant right coronary artery. Left main coronary artery was engaged using XBLAD 3.5 6-Kosovan guide catheter. Left coronary angiography was performed. Left main is totally occluded in the mid region. Left circumflex coronary artery and obtuse margins branches are patent. Using the run through coronary wire, mid left anterior descending coronary artery lesion was crossed. The lesion was predilated using 2.5 x 12 compliant balloon. The long [id number] LAD lesion was stented using 3.0 x 38 vent-solvent right LAD stent. Excellent panel angiographic results with brisk HEATHER 3 flow noted. Using the 0.035 wire pigtail catheter pushed into left ventricle across the aortic valve. LV angiography has revealed no wall motion abnormalities. EDP is 12. LV ejection fraction is approximately 55 to 60%. Pullback was performed. No gradient across the aortic valve. CONCLUSIONS: 1. Radiological interpretation and supervision of the coronary angiography, the LV angiography, and LAD stent placement. 2. The patient present with acute anterior wall AL secondary to total occlusion of the LAD. Successful intervention of the drug eluting stent placement. 3. Normal LV systolic function. RECOMMENDATIONS: Recommend dual antiplatelet therapy for one year, then aspirin, statin, and beta-blockers for life. The patient will be transferred to intensive care unit with Integrilin drip for 12 hours. Further management will be decided once the patient arrives at intensive care unit. Thomas Feng MD
[2017-01-26 06:41] LABS: MEAN CELL VOLUME 87.4 fL (80.0-94.0); MEAN CORPUSCULAR HGB CONC 34.3 g/dL (33.0-37.0); MEAN PLATELET VOLUME 10.7 fL (7.2-11.7); RED CELL DISTRIBUTION WIDTH 13.3 % (11.5-14.5)
[2017-01-26 08:00] LABS: CHLORIDE 110 mmol/L (98-107)
[2017-01-26 08:01] LABS: POTASSIUM 3.5 mmol/L (3.6-5.2); SODIUM 140 mmol/L (132-148)
[2017-01-26 08:03] LABS: ALB/GLOB RATIO 1.1 (1.0-2.1); ALKALINE PHOSPHATASE 51 U/L (38-126); ALT/SGPT 40 U/L (21-72); AST/SGOT 105 U/L (17-59); BILIRUBIN,TOTAL 0.5 mg/dL (0.2-1.3); BLOOD UREA NITROGEN 14 mg/dL (9-20); CARBON DIOXIDE 19 mmol/L (22-30); GFR AFRICAN-AMERICAN > 60; GLUCOSE,RANDOM 85 mg/dL (75-110); TOTAL PROTEIN 6.3 g/dL (6.3-8.3)
[2017-01-26 08:04] LABS: CALCIUM 7.2 mg/dl (8.6-10.4); MAGNESIUM 1.9 mg/dL (1.6-2.3); PHOSPHOROUS 2.7 mg/dL (2.5-4.5)
[2017-01-26] MEDS: Pantoprazole 40 mg EC Tab PO SCH (09:24)
[2017-01-26] MEDS ORDERED: Potassium Chloride 20 mEq ER Tab PO ONE (10:45)
[2017-01-26] MEDS ORDERED: Potassium Chloride 20 mEq ER Tab PO SCH (10:45)
--- NOTE | 2017-01-26 13:10 | CP.CCUPN ---
CCU Subjective - Physician Review Subjective (Free Text): Patient was seen and examined at bedside. Patient was resting comfortably in bed. Patient reports that he is doing well and denies chest pain, palpitation, SOB, fever, chills, nausea or vomiting. Patient is tolerating diet and able to ambulate. Patient has no complaints at this time. CCU Objective - Vital Signs / Intake & Output Vital Signs (Last 4 hours): Vital Signs Temp Pulse Resp BP Pulse Ox 01/26/17 12:00 97.9 F 01/26/17 11:50 92 H 15 129/97 H 97 01/26/17 11:33 96 H 14 96/76 L 100 01/26/17 10:50 86 14 102/72 100 01/26/17 09:50 82 20 116/79 100 01/26/17 09:24 119/76 Intake and Output (Last 8hrs): Intake & Output 01/25/17 01/26/17 01/26/17 22:59 06:59 14:59 Intake Total 1474.2 Output Total 1700 900 200 Balance -225.8 -900 -200 Weight 168 lb Intake: Intake, IV Amount 849.2 Right Antecubital 400 Right Hand 449.2 Oral 625 Output: Urine 1700 900 200 Urine, Voided 1700 900 200 Other: # Voids Urine, Voided 1 - Physical Exam Head: Positive for: Atraumatic, Normocephalic Extroacular Muscles: Positive for: EOMI Mouth: Positive for: Moist Mucous Membranes Respiratory/Chest: Positive for: Clear to Auscultation, Good Air Exchange. Negative for: Respiratory Distress, Accessory Muscle Use Cardiovascular: Positive for: Regular Rate and Rhythm, Normal S1, S2 Abdomen: Positive for: Normal Bowel Sounds. Negative for: Tenderness, Distention Upper Extremity: Positive for: Normal Inspection. Negative for: Edema Lower Extremity: Positive for: Normal Inspection (Cardiac cath entry site on right extremity: No hematoma, no bruit, dressing is C/D/I ). Negative for: Edema, Tenderness, Swelling Neurological: Positive for: GCS=15 Skin: Positive for: Warm, Normal Color Psychiatric: Positive for: Alert, Oriented x 3 - Medications Active Medications: Active Medications Generic Name Dose Route Start Last Admin Trade Name Freq PRN Reason Stop Dose Admin Acetaminophen 650 mg 01/25/17 06:43 Tylenol 325mg Tab PO Q6 PRN Pain, moderate (4-7) Allopurinol 300 mg 01/25/17 10:00 01/26/17 10:44 Zyloprim PO 300 mg DAILY [facility] Administration Aspirin 81 mg 01/26/17 10:00 01/26/17 10:44 Aspirin Chewable PO 81 mg DAILY [facility] Administration Carvedilol 3.125 mg 01/25/17 10:00 01/26/17 09:24 Coreg PO 3.125 mg BID [facility] Administration Enalapril Maleate 5 mg 01/26/17 10:00 01/26/17 09:24 Vasotec PO 5 mg DAILY [facility] Administration Heparin Sodium (Porcine) 5,000 units 01/26/17 10:00 01/26/17 09:28 Heparin SC 5,000 units Q8 [facility] Administration Influenza Virus Vaccine 45 mcg 01/27/17 10:00 Afluria IM 01/27/17 10:01 .ONCE ONE Oxycodone/Acetaminophen 1 tab 01/25/17 12:00 Percocet 5/325 Mg Tab PO 01/28/17 12:01 Q4H PRN Pain, severe (8-10) Pantoprazole Sodium 40 mg 01/25/17 10:00 01/26/17 09:24 Protonix Ec Tab PO 40 mg DAILY [facility] Administration Pneumococcal Polyvalent Vaccine 0.5 ml 01/27/17 10:00 Pneumovax 23 Vaccine IM 01/27/17 10:01 .ONCE ONE Potassium Chloride 40 meq 01/27/17 10:32 Klor-Con 10 PO 01/27/17 10:33 ONCE ONE Rosuvastatin Calcium 40 mg 01/25/17 22:00 01/25/17 21:04 Crestor PO 40 mg HS [facility] Administration Ticagrelor 90 mg 01/25/17 18:00 01/26/17 09:25 Brilinta PO 90 mg BID [facility] Administration - Patient Studies Lab Studies: Lab Studies 01/26/17 01/26/17 01/25/17 Range/Units 06:36 06:36 22:59 WBC 9.0 (4.8-10.8) K/uL RBC 4.57 (4.40-5.90) Mil/uL Hgb 13.7 (12.0-18.0) g/dL Hct 40.0 (35.0-51.0) % MCV 87.4 (80.0-94.0) fL MCH 30.0 (27.0-31.0) pg MCHC 34.3 (33.0-37.0) g/dL RDW 13.3 (11.5-14.5) % Plt Count 177 (130-400) K/uL MPV 10.7 (7.2-11.7) fL Sodium 140 (132-148) mmol/L Potassium 3.5 L (3.6-5.2) mmol/L Chloride 110 H (98-107) mmol/L Carbon Dioxide 19 L (22-30) mmol/L Anion Gap 15 (10-20) BUN 14 (9-20) mg/dL Creatinine 0.7 L (0.8-1.5) MG/DL Est GFR ( Amer) > 60 Est GFR (Non-Af Amer) > 60 Random Glucose 85 (75-110) mg/dL Hemoglobin A1c (4.2-6.5) % Calcium 7.2 L (8.6-10.4) mg/dl Phosphorus 2.7 (2.5-4.5) mg/dL Magnesium 1.9 (1.6-2.3) mg/dL Total Bilirubin 0.5 (0.2-1.3) mg/dL AST 105 H D (17-59) U/L ALT 40 (21-72) U/L Alkaline Phosphatase 51 (38-126) U/L Total Creatine Kinase (55-170) U/L CK-MB (Mass) (0.0-3.38) ng/mL Troponin I 14.8000 H* (0.00-0.120) ng/mL Troponin I, Quant (0.00-0.120) ng/mL Total Protein 6.3 (6.3-8.3) g/dL Albumin 3.3 L (3.5-5.0) g/dL Globulin 3.0 (2.2-3.9) gm/dL Albumin/Globulin Ratio 1.1 (1.0-2.1) Urine Color (YELLOW) Urine Clarity (Clear) Urine pH (5.0-8.0) Ur Specific Viola (1.003-1.030) Urine Protein (NEGATIVE) mg/dL Urine Glucose (UA) (Normal) mg/dL Urine Ketones (NEGATIVE) mg/dL Urine Blood (NEGATIVE) Urine Nitrate (NEGATIVE) Urine Bilirubin (NEGATIVE) Urine Urobilinogen (0.2-1.0) mg/dL Ur Leukocyte Esterase (Negative) Elizabeth/uL Urine WBC (Auto) (0-5) /hpf Urine RBC (Auto) (0-3) /hpf 01/25/17 01/25/17 01/25/17 Range/Units 14:49 14:13 08:10 WBC (4.8-10.8) K/uL RBC (4.40-5.90) Mil/uL Hgb (12.0-18.0) g/dL Hct (35.0-51.0) % MCV (80.0-94.0) fL MCH (27.0-31.0) pg MCHC (33.0-37.0) g/dL RDW (11.5-14.5) % Plt Count (130-400) K/uL MPV (7.2-11.7) fL Sodium (132-148) mmol/L Potassium (3.6-5.2) mmol/L Chloride (98-107) mmol/L Carbon Dioxide (22-30) mmol/L Anion Gap (10-20) BUN (9-20) mg/dL Creatinine (0.8-1.5) MG/DL Est GFR ( Amer) Est GFR (Non-Af Amer) Random Glucose (75-110) mg/dL Hemoglobin A1c 5.5 (4.2-6.5) % Calcium (8.6-10.4) mg/dl Phosphorus (2.5-4.5) mg/dL Magnesium (1.6-2.3) mg/dL Total Bilirubin (0.2-1.3) mg/dL AST (17-59) U/L ALT (21-72) U/L Alkaline Phosphatase (38-126) U/L Total Creatine Kinase 1104 H (55-170) U/L CK-MB (Mass) 70.8 H (0.0-3.38) ng/mL Troponin I (0.00-0.120) ng/mL Troponin I, Quant 39.5000 H* (0.00-0.120) ng/mL Total Protein (6.3-8.3) g/dL Albumin (3.5-5.0) g/dL Globulin (2.2-3.9) gm/dL Albumin/Globulin Ratio (1.0-2.1) Urine Color Straw (YELLOW) Urine Clarity Clear (Clear) Urine pH 5.0 (5.0-8.0) Ur Specific Viola 1.017 (1.003-1.030) Urine Protein Negative (NEGATIVE) mg/dL Urine Glucose (UA) Normal (Normal) mg/dL Urine Ketones Negative (NEGATIVE) mg/dL Urine Blood 1+ H (NEGATIVE) Urine Nitrate Negative (NEGATIVE) Urine Bilirubin Negative (NEGATIVE) Urine Urobilinogen Normal (0.2-1.0) mg/dL Ur Leukocyte Esterase Neg (Negative) Elizabeth/uL Urine WBC (Auto) 1 (0-5) /hpf Urine RBC (Auto) 1 (0-3) /hpf Laboratory Results - last 24 hr 01/25/17 01/25/17 01/25/17 08:10 14:13 14:49 WBC RBC Hgb Hct MCV MCH MCHC RDW Plt Count MPV Sodium Potassium Chloride Carbon Dioxide Anion Gap BUN Creatinine Est GFR ( Amer) Est GFR (Non-Af Amer) Random Glucose Hemoglobin A1c 5.5 Calcium Phosphorus Magnesium Total Bilirubin AST ALT Alkaline Phosphatase Total Creatine Kinase 1104 H CK-MB (Mass) 70.8 H Troponin I Troponin I, Quant 39.5000 H* Total Protein Albumin Globulin Albumin/Globulin Ratio Urine Color Straw Urine Clarity Clear Urine pH 5.0 Ur Specific Viola 1.017 Urine Protein Negative Urine Glucose (UA) Normal Urine Ketones Negative Urine Blood 1+ H Urine Nitrate Negative Urine Bilirubin Negative Urine Urobilinogen Normal Ur Leukocyte Esterase Neg Urine WBC (Auto) 1 Urine RBC (Auto) 1 01/25/17 01/26/17 01/26/17 22:59 06:36 06:36 WBC 9.0 RBC 4.57 Hgb 13.7 Hct 40.0 MCV 87.4 MCH 30.0 MCHC 34.3 RDW 13.3 Plt Count 177 MPV 10.7 Sodium 140 Potassium 3.5 L Chloride 110 H Carbon Dioxide 19 L Anion Gap 15 BUN 14 Creatinine 0.7 L Est GFR ( Amer) > 60 Est GFR (Non-Af Amer) > 60 Random Glucose 85 Hemoglobin A1c Calcium 7.2 L Phosphorus 2.7 Magnesium 1.9 Total Bilirubin 0.5 AST 105 H D ALT 40 Alkaline Phosphatase 51 Total Creatine Kinase CK-MB (Mass) Troponin I 14.8000 H* Troponin I, Quant Total Protein 6.3 Albumin 3.3 L Globulin 3.0 Albumin/Globulin Ratio 1.1 Urine Color Urine Clarity Urine pH Ur Specific Viola Urine Protein Urine Glucose (UA) Urine Ketones Urine Blood Urine Nitrate Urine Bilirubin Urine Urobilinogen Ur Leukocyte Esterase Urine WBC (Auto) Urine RBC (Auto) EKG/Cardiology Studies: Cardiology / EKG Studies 01/26/17 08:00 ELECTROCARDIOGRAM DAILY Comment: Mode Of Transportation: Reason For Exam: code heart 01/27/17 08:00 ELECTROCARDIOGRAM DAILY Comment: Mode Of Transportation: Reason For Exam: code heart 01/28/17 08:00 ELECTROCARDIOGRAM DAILY Comment: Mode Of Transportation: Reason For Exam: code heart Review of Systems - Constitutional Constitutional: absent: Fever, Chills, Sweats - Cardiovascular Cardiovascular: absent: Chest Pain, Chest Pain at Rest, Diaphoresis, Dyspnea, Lightheadedness, Palpitations, Pedal Edema, Radiating Pain - Respiratory Respiratory: absent: Cough, Dyspnea - Gastrointestinal Gastrointestinal: Constipation. absent: Abdominal Pain, Cramping, Nausea, Vomiting - Genitourinary Genitourinary: absent: Difficulty Urinating - Musculoskeletal Musculoskeletal: absent: Numbness, Tingling - Neurological Neurological: absent: Dizziness, Headaches, Syncope, Tingling, Weakness - Endocrine Endocrine: absent: Palpitations Critical Care Progress Note - Nutrition Nutrition: Nutrition Category Date Time Status Heart Healthy Diet [DIET] Diets 01/25/17 Breakfast Active Assessment/Plan - Assessment and Plan (Free Text) Assessment: Patient is a 66 y/o male with a PMH of HTN, HLD admitted for chest pain, s/p long FLOR stent placement in the LAD and thrombectomy as a result of 100% LAD occlusion Plan: PULM: No acute issues Cardio: Stable ACS protocol status post RI with cardiac intervention (Stent placement in LAD) * Aspirin 81 mg PO daily * Brillinta 90mg PO BID * Crestor 40mg PO HS * Coreg 3.125mg PO BID * Percocet for pain control HTN: * Vasotec 5mg PO daily GI: No acute issues Renal: No acute issues Endo: No acute issues Neuro: Alert, awake and oriented Prophylaxis: DVT prophylaxis: heparin 5,000units SC Q8H GI prophylaxis: Protonix 40mg PO daily Encourage ambulation
--- NOTE | 2017-01-26 15:26 | CP.PCM.PN ---
Subjective - Date & Time of Evaluation Date of Evaluation: 01/26/17 Time of Evaluation: 15:20 - Subjective Subjective: Medical Attending Note Patient seen, examined, and case discussed with ICU. Patient denies headache, denies chest pain, denies palpitations, denies abdominal pain, reports he is moving his bowel, denies diarrhea, urinating well, denies bleeding, and denies edema. Patient accompanied with at bedside. Objective - Vital Signs/Intake and Output Vital Signs (last 24 hours): Temp Pulse Resp BP Pulse Ox 97.9 F 76 15 102/68 99 01/26/17 12:00 01/26/17 14:00 01/26/17 14:00 01/26/17 13:50 01/26/17 14:00 Intake and Output: 01/26/17 01/26/17 06:59 18:59 Intake Total 700 1200 Output Total 1800 1000 Balance -1100 200 - Medications Medications: Current Medications Acetaminophen (Tylenol 325mg Tab) 650 mg PO Q6 PRN PRN Reason: Pain, moderate (4-7) Allopurinol (Zyloprim) 300 mg PO DAILY [facility] Last Admin: 01/26/17 10:44 Dose: 300 mg Aspirin (Aspirin Chewable) 81 mg PO DAILY [facility] Last Admin: 01/26/17 10:44 Dose: 81 mg Carvedilol (Coreg) 3.125 mg PO BID [facility] Last Admin: 01/26/17 09:24 Dose: 3.125 mg Enalapril Maleate (Vasotec) 5 mg PO DAILY [facility] Last Admin: 01/26/17 09:24 Dose: 5 mg Heparin Sodium (Porcine) (Heparin) 5,000 units SC Q8 [facility] Last Admin: 01/26/17 14:15 Dose: 5,000 units Influenza Virus Vaccine (Afluria) 45 mcg IM .ONCE ONE Stop: 01/27/17 10:01 Oxycodone/Acetaminophen (Percocet 5/325 Mg Tab) 1 tab PO Q4H PRN PRN Reason: Pain, severe (8-10) Stop: 01/28/17 12:01 Pantoprazole Sodium (Protonix Ec Tab) 40 mg PO DAILY [facility] Last Admin: 01/26/17 09:24 Dose: 40 mg Pneumococcal Polyvalent Vaccine (Pneumovax 23 Vaccine) 0.5 ml IM .ONCE ONE Stop: 01/27/17 10:01 Potassium Chloride (Klor-Con 10) 40 meq PO ONCE ONE Stop: 01/27/17 10:33 Rosuvastatin Calcium (Crestor) 40 mg PO HS [facility] Last Admin: 01/25/17 21:04 Dose: 40 mg Ticagrelor (Brilinta) 90 mg PO BID [facility] Last Admin: 01/26/17 09:25 Dose: 90 mg - Labs Labs: 01/26/17 06:36 01/26/17 06:36 PT 10.7 SECONDS (9.7-12.2) 01/25/17 05:36 INR 1.0 01/25/17 05:36 APTT 30 SECONDS (21-34) 01/25/17 05:36 - Constitutional Appears: Non-toxic, No Acute Distress - Head Exam Head Exam: NORMAL INSPECTION - Eye Exam Eye Exam: EOMI - ENT Exam ENT Exam: Mucous Membranes Moist - Respiratory Exam Respiratory Exam: Clear to Ausculation Bilateral, NORMAL BREATHING PATTERN. absent: Rales, Rhonchi, Wheezes - Cardiovascular Exam Cardiovascular Exam: REGULAR RHYTHM, +S1, +S2. absent: JVD - GI/Abdominal Exam GI & Abdominal Exam: Soft, Normal Bowel Sounds. absent: Distended, Firm, Guarding, Rigid, Tenderness, Rebound - Extremities Exam Extremities Exam: absent: Pedal Edema, Tenderness - Neurological Exam Neurological Exam: Alert, Awake, Oriented x3 - Skin Skin Exam: Dry, Normal Color, Warm Attending/Attestation - Attestation I have personally seen and examined this patient.: Yes I have fully participated in the care of the patient.: Yes I have reviewed all pertinent clinical information, including history, physical exam and plan: Yes Notes (Text): Assessment/Plan 1) Anterior STEMI, s/p cath 100% LAD occlusion, s/p long LFOR stent and thrombectomy * Cardiology (Dr. Feng) on board-->help appreciated * Per cardiology, recommend dual antiplatelet therapy for one year, then aspirin, statin, and beta blockers for life * Cath results * L Main: patent * LAD: proximal 100% with HEATHER 0 flow. Left Circumflex: patent; LAD: proximal 100% with HEATHER 0 flow; RCA: dominant and patent, LV: post intervention. Normal EF, EDP: 10 * Aspirin 81mg PO daily * Coreg 3.125mg PO BID * Plavix 300mg PO tonight, start Plavix 75mg PO daily * Crestor 40mg POqHS * Enalapril 5mg PO daily * Echocardiogram results pending * [id number] 5.5 * Lipid panel: T, cholestrol: 124, LDL: 76, HDL: 34 * Troponin: 7.4400-->39.500-->14.800 2) History of Hypertension * Coreg 3.125mg PO BID * Enalapril 5mg PO daily * Monitor vital signs and treat 3) History of Gout * Allopurinal 4) Hypokalemia * replete * monitor and replete if necessary 5) DVT ppx * Heparin 5000 units subq 8 hours for DVT ppx 5) GI ppx * Pepcid 20mg IV Q 12hours for GI ppx
[2017-01-26 20:04] LABS: BASO % 0.2 % (0.0-2.0); EOS # 0.1 K/uL (0.0-0.7); EOS % 0.5 % (0.0-4.0); HEMATOCRIT 38.6 % (35.0-51.0); LYMPH # 2.5 K/uL (1.0-4.3); LYMPH % 25.2 % (20.0-40.0); MEAN CELL VOLUME 87.2 fL (80.0-94.0); MEAN CORPUSCULAR HEMOGLOBIN 30.4 pg (27.0-31.0); MEAN CORPUSCULAR HGB CONC 34.8 g/dL (33.0-37.0); MEAN PLATELET VOLUME 10.3 fL (7.2-11.7); MONO # 0.9 K/uL (0.0-0.8); MONO % 9.3 % (0.0-10.0); RED CELL DISTRIBUTION WIDTH 13.6 % (11.5-14.5); WHITE BLOOD COUNT 10.1 K/uL (4.8-10.8)
--- NOTE | 2017-01-26 21:34 | CP.PCM.PN ---
Subjective - Date & Time of Evaluation Date of Evaluation: 01/26/17 Time of Evaluation: 08:05 - Subjective Subjective: Patient seen and evaluated. Chest pain free D/W Patient using operator vacuum Physical Examination - Constitutional Appears: Non-toxic, No Acute Distress - Head Exam Head Exam: NORMAL INSPECTION - Eye Exam Eye Exam: EOMI - ENT Exam ENT Exam: Mucous Membranes Moist - Respiratory Exam Respiratory Exam: Clear to Ausculation Bilateral, NORMAL BREATHING PATTERN. absent: Rales, Rhonchi, Wheezes - Cardiovascular Exam Cardiovascular Exam: REGULAR RHYTHM, +S1, +S2. absent: JVD - GI/Abdominal Exam GI & Abdominal Exam: Soft, Normal Bowel Sounds. absent: Distended, Firm, Guarding, Rigid, Tenderness, Rebound - Extremities Exam Extremities Exam: absent: Pedal Edema, Tenderness - Neurological Exam Neurological Exam: Alert, Awake, Oriented x3 - Skin Skin Exam: Dry, Normal Color, Warm Objective - Vital Signs/Intake and Output Vital Signs (last 24 hours): Temp Pulse Resp BP Pulse Ox 99.2 F 83 24 114/75 98 01/26/17 20:00 01/26/17 21:00 01/26/17 21:00 01/26/17 19:50 01/26/17 21:00 Intake and Output: 01/26/17 01/27/17 18:59 06:59 Intake Total 1680 Output Total 1300 Balance 380 - Medications Medications: Current Medications Allopurinol (Zyloprim) 300 mg PO DAILY [facility] Last Admin: 01/26/17 10:44 Dose: 300 mg Aspirin (Aspirin Chewable) 81 mg PO DAILY [facility] Last Admin: 01/26/17 10:44 Dose: 81 mg Carvedilol (Coreg) 3.125 mg PO BID [facility] Last Admin: 01/26/17 17:55 Dose: 3.125 mg Clopidogrel Bisulfate (Plavix) 75 mg PO DAILY [facility] Enalapril Maleate (Vasotec) 5 mg PO DAILY [facility] Last Admin: 01/26/17 09:24 Dose: 5 mg Famotidine (Pepcid) 20 mg IVP Q12 [facility] Last Admin: 01/26/17 21:30 Dose: 20 mg Heparin Sodium (Porcine) (Heparin) 5,000 units SC Q8 [facility] Last Admin: 01/26/17 21:30 Dose: 5,000 units Influenza Virus Vaccine (Afluria) 45 mcg IM .ONCE ONE Stop: 01/27/17 10:01 Oxycodone/Acetaminophen (Percocet 5/325 Mg Tab) 1 tab PO Q4H PRN PRN Reason: Pain, severe (8-10) Stop: 01/28/17 12:01 Pneumococcal Polyvalent Vaccine (Pneumovax 23 Vaccine) 0.5 ml IM .ONCE ONE Stop: 01/27/17 10:01 Potassium Chloride (Klor-Con 10) 40 meq PO ONCE ONE Stop: 01/27/17 10:33 Rosuvastatin Calcium (Crestor) 40 mg PO HS [facility] Last Admin: 01/26/17 21:30 Dose: 40 mg - Labs Labs: 01/26/17 19:50 01/26/17 06:36 PT 10.7 SECONDS (9.7-12.2) 01/25/17 05:36 INR 1.0 01/25/17 05:36 APTT 30 SECONDS (21-34) 01/25/17 05:36 Assessment and Plan - Assessment and Plan (Free Text) Assessment: 1) Anterior STEMI, s/p cath 100% LAD occlusion, s/p long FLOR stent and thrombectomy * Recommend dual antiplatelet therapy for one year, then aspirin, statin, and beta blockers for life * Cath results * L Main: patent * LAD: proximal 100% with HEATHER 0 flow. Left Circumflex: patent; LAD: proximal 100% with HEATHER 0 flow; RCA: dominant and patent, LV: post intervention. Normal EF, EDP: 10 * Aspirin 81mg PO daily * Coreg 3.125mg PO BID * Plavix 300mg PO tonight, start Plavix 75mg PO daily * Crestor 40mg POqHS * Enalapril 5mg PO daily * Echocardiogram results pending * [id number] 5.5 * Lipid panel: T, cholestrol: 124, LDL: 76, HDL: 34 * Troponin: 7.4400-->39.500-->14.800 2) History of Hypertension * Coreg 3.125mg PO BID * Enalapril 5mg PO daily * Monitor vital signs and treat 3) History of Gout * Allopurinal 4) Hypokalemia * replete * monitor and replete if necessary 5) DVT ppx * Heparin 5000 units subq 8 hours for DVT ppx 5) GI ppx * Pepcid 20mg IV Q 12hours for GI ppx
[2017-01-27 06:49] LABS: ALB/GLOB RATIO 1.3 (1.0-2.1); ALKALINE PHOSPHATASE 55 U/L (38-126); ALT/SGPT 38 U/L (21-72); AST/SGOT 74 U/L (17-59); BILIRUBIN,TOTAL 0.7 mg/dL (0.2-1.3); BLOOD UREA NITROGEN 16 mg/dL (9-20); CARBON DIOXIDE 22 mmol/L (22-30); CHLORIDE 102 mmol/L (98-107); GFR AFRICAN-AMERICAN > 60; GLUCOSE,RANDOM 97 mg/dL (75-110); MAGNESIUM 1.9 mg/dL (1.6-2.3); POTASSIUM 3.8 mmol/L (3.6-5.2); SODIUM 137 mmol/L (132-148); TOTAL PROTEIN 6.8 g/dL (6.3-8.3)
[2017-01-27 06:55] LABS: BASO % 0.2 % (0.0-2.0); EOS # 0.1 K/uL (0.0-0.7); EOS % 0.5 % (0.0-4.0); HEMATOCRIT 40.9 % (35.0-51.0); LYMPH # 2.5 K/uL (1.0-4.3); LYMPH % 26.8 % (20.0-40.0); MEAN CELL VOLUME 86.5 fL (80.0-94.0); MEAN CORPUSCULAR HEMOGLOBIN 30.2 pg (27.0-31.0); MEAN CORPUSCULAR HGB CONC 34.9 g/dL (33.0-37.0); MEAN PLATELET VOLUME 10.8 fL (7.2-11.7); MONO # 1.1 K/uL (0.0-0.8); RED CELL DISTRIBUTION WIDTH 13.2 % (11.5-14.5); WHITE BLOOD COUNT 9.4 K/uL (4.8-10.8)
--- NOTE | 2017-01-27 09:32 | CP.PCM.PN ---
Subjective - Date & Time of Evaluation Date of Evaluation: 01/27/17 Time of Evaluation: 09:20 - Subjective Subjective: Medical Attending Note: Patient seen, examined with day-time resident. Translation provided by [place] [employer] speaking medical student Marie on medicine team service. Patient accompanied with at bedside. Patient denies headache, denies chest pain, denies palpitations, denies shortness of breathe, denies abdominal pain, denies nausea, denies vomitting, had a bowel movement yesterday which he reported was "black". When I i asked him today, patient reports it was dark brown not black, no blood observed. Patient has never had a screening colonoscopy; reports he does not want one; explained the intended purpose of colonoscopy as as screening exam to prevent colon cancer. Patient's cath site only pain if you press hard. ИВАН performed with [facility] Resident, PGY-1 Kyle Farrell with consent of the patient at bedside. No gross blood observed, No mass palpated, no hemorrhoids observed. Two stool cards taken and provided to nurse to be sent to rule out occult blood. Advised patient next time when he has bowel movement to let the nurse know to observe. Objective - Vital Signs/Intake and Output Vital Signs (last 24 hours): Temp Pulse Resp BP Pulse Ox 98.1 F 94 H 14 115/92 H 97 01/27/17 08:00 01/27/17 08:00 01/27/17 07:49 01/27/17 07:49 01/27/17 07:49 Intake and Output: 01/27/17 01/27/17 06:59 18:59 Intake Total 240 Output Total 1000 Balance -760 - Medications Medications: Current Medications Allopurinol (Zyloprim) 300 mg PO DAILY [facility] [place] Last Admin: 01/27/17 09:20 Dose: 300 mg Aspirin (Aspirin Chewable) 81 mg PO DAILY [facility] [place] Last Admin: 01/27/17 09:20 Dose: 81 mg Carvedilol (Coreg) 3.125 mg PO BID [facility] [place] Last Admin: 01/27/17 09:20 Dose: 3.125 mg Clopidogrel Bisulfate (Plavix) 75 mg PO DAILY [facility] [place] Last Admin: 01/27/17 09:20 Dose: 75 mg Docusate Sodium (Colace) 100 mg PO BID [facility] [place] Enalapril Maleate (Vasotec) 5 mg PO DAILY [facility] [place] Last Admin: 01/26/17 09:24 Dose: 5 mg Famotidine (Pepcid) 20 mg IVP Q12 [facility] [place] Last Admin: 01/27/17 09:20 Dose: 20 mg Heparin Sodium (Porcine) (Heparin) 5,000 units SC Q8 [facility] [place] Last Admin: 01/27/17 05:15 Dose: 5,000 units Hydrocortisone (Anusol-Hc) 1 gm [place] BID [facility] [place] Influenza Virus Vaccine (Afluria) 45 mcg IM .ONCE ONE Stop: 01/27/17 10:01 Pneumococcal Polyvalent Vaccine (Pneumovax 23 Vaccine) 0.5 ml IM .ONCE ONE Stop: 01/27/17 10:01 Rosuvastatin Calcium (Crestor) 10 mg PO HS [facility] [place] Last Admin: 01/26/17 22:37 Dose: Not Given - Labs Labs: 01/27/17 06:24 01/27/17 06:24 PT 10.7 SECONDS (9.7-12.2) 01/25/17 05:36 INR 1.0 01/25/17 05:36 APTT 30 SECONDS (21-34) 01/25/17 05:36 - Constitutional Appears: Non-toxic, No Acute Distress - Head Exam Head Exam: NORMAL INSPECTION - Eye Exam Eye Exam: EOMI - ENT Exam ENT Exam: Mucous Membranes Moist - Respiratory Exam Respiratory Exam: Clear to Ausculation Bilateral, NORMAL BREATHING PATTERN. absent: Rales, Rhonchi - Cardiovascular Exam Cardiovascular Exam: REGULAR RHYTHM, +S1, +S2 - GI/Abdominal Exam GI & Abdominal Exam: Soft, Normal Bowel Sounds. absent: Distended, Firm, Guarding, Rigid, Tenderness Additional comments: right groin cath site: dressing clean/dry intact Mild ecchymoses over the site. No bleeding observed - Rectal Exam Rectal Exam: NORMAL INSPECTION. absent: Black Stool, Bloody Stool, Hemorrhoids - Extremities Exam Extremities Exam: Full ROM, Normal Capillary Refill. absent: Pedal Edema - Back Exam Back Exam: absent: CVA tenderness (L), CVA tenderness (R), rash noted - Neurological Exam Neurological Exam: Alert, Awake, CN II-XII Intact, Oriented x3 Neuro motor strength exam: Left Upper Extremity: 5, Right Upper Extremity: 5, Left Lower Extremity: 5, Right Lower Extremity: 5 - Psychiatric Exam Psychiatric exam: Normal Affect, Normal Mood - Skin Skin Exam: Dry, Intact, Normal Color, Warm Assessment and Plan - Assessment and Plan (Free Text) Assessment: Assessment/Plan 1) Anterior STEMI, s/p cath 100% LAD occlusion, s/p long FLOR stent and thrombectomy * Cardiology (Dr. Feng) on board-->help appreciated * Per cardiology, recommend dual antiplatelet therapy for one year, then aspirin, statin, and beta blockers for life * Cath results * L Main: patent * LAD: proximal 100% with HEATHER 0 flow. Left Circumflex: patent; LAD: proximal 100% with HEATHER 0 flow; RCA: dominant and patent, LV: post intervention. Normal EF, EDP: 10 * Aspirin 81mg PO daily * Coreg 3.125mg PO BID * Plavix 75mg PO daily * Crestor 40mg POqHS * Enalapril 5mg PO daily * Echocardiogram results pending read * [id number] 5.5 * Lipid panel: T, cholestrol: 124, LDL: 76, HDL: 34 * Troponin: 7.4400-->39.500-->14.800-->8.2-->6.5 * Awaiting cardiology rounds to determine if patient stable for discharge from their standpoint 2) History of Hypertension * Coreg 3.125mg PO BID * Enalapril 5mg PO daily * Monitor vital signs and treat 3) History of Gout * Allopuronal 4) Hypokalemia * normal today 5) "Black stool" * Patient reports it was dark brown. * Occult blood X2 pending * H/H is stable no drop observed * Advised patient to let nurse observed if there is gross blood or not 6) DVT ppx * Heparin 5000 units subq 8 hours for DVT ppx 7) GI ppx * Pepcid 20mg IV Q 12hours for GI ppx
[2017-01-27] MEDS ORDERED: Pneumococcal 23-Valent Vaccine IM ONE (10:00)
[2017-01-27] MEDS ORDERED: Influenza Virus Vaccine 45 mcg/0.5 ml Syr IM ONE (10:00)
[2017-01-27] MEDS ORDERED: Potassium Chloride 10 mEq ER Tab PO ONE (10:32)
[2017-01-27] MEDS: Hydrocortisone 2.5% Rectal Cream(30 gm) PR SCH ×2 (11:04→17:56)
[2017-01-28 08:57] VITALS: TEMP 98.8
[2017-01-28 09:15] LABS: BASO % 0.3 % (0.0-2.0); HEMATOCRIT 43.8 % (35.0-51.0); LYMPH # 2.6 K/uL (1.0-4.3); LYMPH % 19.6 % (20.0-40.0); MEAN CELL VOLUME 86.7 fL (80.0-94.0); MEAN CORPUSCULAR HGB CONC 34.6 g/dL (33.0-37.0); MEAN PLATELET VOLUME 10.4 fL (7.2-11.7); MONO # 1.1 K/uL (0.0-0.8); MONO % 8.5 % (0.0-10.0); RED CELL DISTRIBUTION WIDTH 13.2 % (11.5-14.5)
[2017-01-28] MEDS: Hydrocortisone 2.5% Rectal Cream(30 gm) PR SCH (09:16)
[2017-01-28 09:44] LABS: CHLORIDE 97 mmol/L (98-107); POTASSIUM 4.3 mmol/L (3.6-5.2); SODIUM 136 mmol/L (132-148)
[2017-01-28 09:46] LABS: ALKALINE PHOSPHATASE 63 U/L (38-126); AST/SGOT 76 U/L (17-59); BILIRUBIN,TOTAL 0.9 mg/dL (0.2-1.3); CARBON DIOXIDE 21 mmol/L (22-30); GFR AFRICAN-AMERICAN > 60
[2017-01-28 09:47] LABS: ALB/GLOB RATIO 1.3 (1.0-2.1); ALT/SGPT 38 U/L (21-72); BLOOD UREA NITROGEN 23 mg/dL (9-20); CALCIUM 9.4 mg/dl (8.6-10.4); GLUCOSE,RANDOM 147 mg/dL (75-110); TOTAL PROTEIN 8.1 g/dL (6.3-8.3)
--- NOTE | 2017-01-28 10:20 | CP.PCM.PN ---
Subjective - Date & Time of Evaluation Date of Evaluation: 01/28/17 Time of Evaluation: 07:50 - Subjective Subjective: Cardiology progress Note- Dr. Feng's service Pt seen and examined in no acute distress. Patient eagerly anticipating going home. Patient inquired about when he could take a shower as well as his cath site dressing. He admits to pain in his arm after receiving a vaccination yesterday. Per primary team, patient admitted to dark colored stool yesterday to which digital rectal exam as well as occult testing was performed. He denies chest pain, palpitations, subjective fevers or chills, nausea, vomiting or diarrhea at this time. Objective - Vital Signs/Intake and Output Vital Signs (last 24 hours): Temp Pulse Resp BP Pulse Ox 98.8 F 103 H 15 125/45 L 97 01/28/17 08:00 01/28/17 08:00 01/28/17 08:00 01/28/17 09:17 01/28/17 08:00 Intake and Output: 01/28/17 01/28/17 06:59 18:59 Intake Total 240 Balance 240 - Medications Medications: Current Medications Allopurinol (Zyloprim) 300 mg PO DAILY [facility] Last Admin: 01/28/17 09:18 Dose: 300 mg Aspirin (Aspirin Chewable) 81 mg PO DAILY [facility] Last Admin: 01/28/17 09:16 Dose: 81 mg Carvedilol (Coreg) 3.125 mg PO BID [facility] Last Admin: 01/28/17 09:17 Dose: 3.125 mg Clopidogrel Bisulfate (Plavix) 75 mg PO DAILY [facility] Last Admin: 01/28/17 09:17 Dose: 75 mg Docusate Sodium (Colace) 100 mg PO BID [facility] Last Admin: 01/28/17 09:16 Dose: 100 mg Enalapril Maleate (Vasotec) 5 mg PO DAILY [facility] Last Admin: 01/28/17 09:17 Dose: 5 mg Famotidine (Pepcid) 20 mg IVP Q12 [facility] Last Admin: 01/28/17 09:17 Dose: 20 mg Heparin Sodium (Porcine) (Heparin) 5,000 units SC Q8 [facility] Last Admin: 01/28/17 05:38 Dose: 5,000 units Hydrocortisone (Anusol-Hc) 0 gm [place] BID [facility] Last Admin: 01/28/17 09:16 Dose: 1 applic Rosuvastatin Calcium (Crestor) 10 mg PO HS [facility] Last Admin: 01/27/17 21:25 Dose: 10 mg - Labs Labs: 01/28/17 09:11 01/28/17 09:11 PT 10.7 SECONDS (9.7-12.2) 01/25/17 05:36 INR 1.0 01/25/17 05:36 APTT 30 SECONDS (21-34) 01/25/17 05:36 - Constitutional Appears: Non-toxic, No Acute Distress - Head Exam Head Exam: ATRAUMATIC, NORMAL INSPECTION, NORMOCEPHALIC - Eye Exam Eye Exam: EOMI, Normal appearance, PERRL Pupil Exam: NORMAL ACCOMODATION, PERRL - ENT Exam ENT Exam: Mucous Membranes Moist - Neck Exam Neck Exam: Full ROM - Respiratory Exam Respiratory Exam: NORMAL BREATHING PATTERN. absent: Wheezes - Cardiovascular Exam Cardiovascular Exam: +S1, +S2 - GI/Abdominal Exam GI & Abdominal Exam: Soft, Normal Bowel Sounds - Exam Additional comments: R groin catheter site: dressing c,d,i with superficial ecchymosis noted. No hematomas or tenderness appreciated - Extremities Exam Extremities Exam: Full ROM, Normal Capillary Refill, Normal Inspection. absent : Pedal Edema - Back Exam Back Exam: Full ROM - Neurological Exam Neurological Exam: Alert, Awake, CN II-XII Intact, Normal Gait, Oriented x3 Neuro motor strength exam: Left Upper Extremity: 5, Right Upper Extremity: 5, Left Lower Extremity: 5, Right Lower Extremity: 5 - Psychiatric Exam Psychiatric exam: Normal Affect, Normal Mood - Skin Skin Exam: Intact, Warm Assessment and Plan - Assessment and Plan (Free Text) Assessment: Anterior STEMI, s/p cath 100% LAD occlusion, s/p long FLOR stent and thrombectomy * Recommendations for dual antiplatelet therapy for one year. Following that, patient should take aspirin, statin, and beta blockers for life * Cath results * L Main: patent * LAD: proximal 100% with HEATHER 0 flow. Left Circumflex: patent; LAD: proximal 100% with HEATHER 0 flow; RCA: dominant and patent, LV: post intervention. Normal EF, EDP: 10 * Aspirin 81mg PO daily * Coreg 3.125mg PO BID * Plavix 300mg PO tonight, start Plavix 75mg PO daily * Crestor 10mg POqHS * Enalapril 5mg PO daily * Echocardiogram results pending * Hgba1c 5.5 * Lipid panel: T, cholesterol: 124, LDL: 76, HDL: 34 * Troponin: 7.4400-->39.500-->14.800 ( on admission) History of Hypertension * Coreg 3.125mg PO BID * Enalapril 5mg PO daily * Monitor vital signs and treat History of Gout * Allopurinol Prophylactic measure * Heparin 5000 units subq 8 hours for DVT ppx * Pepcid 20mg IV Q 12 hours for GI ppx Disposition: Patient is stable for discharge from a Cardiology standpoint. Patient should follow up at Dr. Feng's office within two weeks. Discharge instructions explained to patient inclusive of medications, followup, physical activity and return to work . Patient and family member expressed understanding. Discussed with attending. All management and planning per Dr. Feng.
--- NOTE | 2017-01-28 11:28 | CARD ---
APPROVED REPORT EXAM: Two-dimensional and M-mode echocardiogram with Doppler and color Doppler. Other Information Quality : GoodRhythm : INDICATION Acute SC Chest Pain RISK FACTORS Hypertension 2D DIMENSIONS IVSd1.4 (0.7-1.1cm)LVDd4.5 (3.9-5.9cm) PWd1.3 (0.7-1.1cm)LVDs3.2 (2.5-4.0cm) FS (%) 28.6 %LVEF (%)55.3 (>50%) M-Mode DIMENSIONS Left Atrium (MM)2.87 (2.5-4.0cm)Aortic Root3.87 (2.2-3.7cm) Aortic Cusp Exc.2.09 (1.5-2.0cm) Mitral Valve MV E Ctsknpsu10.6cm/sMV A [place]ne76.2cm/sE/A ratio0.6 TDI E/Lateral E'0.0E/Medial E'0.0 Tricuspid Valve TR Peak Qihkzvdm420gd/sTR Peak [id number] LEFT VENTRICLE The left ventricle is normal size. There is mild concentric left ventricular hypertrophy. EF 55-60%. MILD TO MOD HYPOKINESIS OF THE MID AND APICAL ANTEROSEPTAL WALL SEGMENTS. THERE IS BORDERLINE TO MILD HYPOKINESIS OF THE ANTERIOR WALL IN THE MID AND APICAL WALL SEGMENTS. Transmitral Doppler flow pattern is Grade I-abnormal relaxation pattern. No left ventricle thrombus noted on this study. There is no ventricular septal defect visualized. There is no left ventricular aneurysm. RIGHT VENTRICLE The right ventricle is normal size. There is normal right ventricular wall thickness. The right ventricular systolic function is normal. ATRIA The left atrium size is normal. The right atrium size is normal. The interatrial septum is intact with no evidence for an atrial septal defect. AORTIC VALVE The aortic valve is mildly sclerotic. No aortic regurgitation is present. There is no aortic valvular stenosis. MITRAL VALVE The mitral valve is normal in structure and function. There is no evidence of mitral valve prolapse. There is no mitral valve stenosis. There is no mitral valve regurgitation noted. TRICUSPID VALVE The tricuspid valve is normal in structure and function. There is trace tricuspid regurgitation. There is no tricuspid valve prolapse or vegetation. There is no tricuspid valve stenosis. PULMONIC VALVE The pulmonary valve is normal in structure and function. There is no pulmonic valvular regurgitation. There is no pulmonic valvular stenosis. GREAT VESSELS THE AORTIC ROOT AND ASCENDING AORTA ARE BORDERLINE DILATED. The IVC is normal in size and collapses >50% with inspiration. <Conclusion> EF 55-60%. MILD TO MOD HYPOKINESIS OF THE MID AND APICAL ANTEROSEPTAL WALL SEGMENTS. THERE IS BORDERLINE TO MILD HYPOKINESIS OF THE ANTERIOR WALL IN THE MID AND APICAL WALL SEGMENTS. Transmitral Doppler flow pattern is Grade I-abnormal relaxation pattern. There is mild concentric left ventricular hypertrophy. THE AORTIC ROOT AND ASCENDING AORTA ARE BORDERLINE DILATED.
[2017-01-28 12:06] VITALS: BP 119/84; PULSE 96; RESP 20; O2SAT 98
--- NOTE | 2017-01-28 17:19 | CP.PCM.DIS ---
<Kyle Farrell - Last Filed: 01/28/17 17:03> Provider - Provider Date of Admission: 01/25/17 05:40 Attending physician: Regina Ascencio DO Time Spent in preparation of Discharge (in minutes): 30 Hospital Course - Lab Results Lab Results: Micro Results 01/25/17 06:00 Naris MRSA Culture (Admit) - Final MRSA NOT DETECTED Most Recent Lab Values WBC 13.0 K/uL (4.8-10.8) H 01/28/17 09:11 RBC 5.05 Mil/uL (4.40-5.90) 01/28/17 09:11 Hgb 15.1 g/dL (12.0-18.0) 01/28/17 09:11 Hct 43.8 % (35.0-51.0) 01/28/17 09:11 MCV 86.7 fL (80.0-94.0) 01/28/17 09:11 MCH 30.0 pg (27.0-31.0) 01/28/17 09:11 MCHC 34.6 g/dL (33.0-37.0) 01/28/17 09:11 RDW 13.2 % (11.5-14.5) 01/28/17 09:11 Plt Count 222 K/uL (130-400) 01/28/17 09:11 MPV 10.4 fL (7.2-11.7) 01/28/17 09:11 Neut % (Auto) 71.6 % (50.0-75.0) 01/28/17 09:11 Lymph % (Auto) 19.6 % (20.0-40.0) L 01/28/17 09:11 Metcalfe % (Auto) 8.5 % (0.0-10.0) 01/28/17 09:11 Eos % (Auto) 0.0 % (0.0-4.0) 01/28/17 09:11 Baso % (Auto) 0.3 % (0.0-2.0) 01/28/17 09:11 Neut # 9.3 K/uL (1.8-7.0) H 01/28/17 09:11 Lymph # 2.6 K/uL (1.0-4.3) 01/28/17 09:11 Metcalfe # 1.1 K/uL (0.0-0.8) H 01/28/17 09:11 Eos # 0.0 K/uL (0.0-0.7) 01/28/17 09:11 Baso # 0.0 K/uL (0.0-0.2) 01/28/17 09:11 PT 10.7 SECONDS (9.7-12.2) 01/25/17 05:36 INR 1.0 01/25/17 05:36 APTT 30 SECONDS (21-34) 01/25/17 05:36 Sodium 136 mmol/L (132-148) 01/28/17 09:11 Potassium 4.3 mmol/L (3.6-5.2) 01/28/17 09:11 Chloride 97 mmol/L (98-107) L 01/28/17 09:11 Carbon Dioxide 21 mmol/L (22-30) L 01/28/17 09:11 Anion Gap 22 (10-20) H 01/28/17 09:11 BUN 23 mg/dL (9-20) H 01/28/17 09:11 Creatinine 1.0 MG/DL (0.8-1.5) 01/28/17 09:11 Est GFR ( Amer) > 60 01/28/17 09:11 Est GFR (Non-Af Amer) > 60 01/28/17 09:11 POC Glucose (mg/dL) 129 mg/dL (65-110) H 01/25/17 07:56 Random Glucose 147 mg/dL (75-110) H 01/28/17 09:11 Hemoglobin A1c 5.5 % (4.2-6.5) 01/25/17 08:10 Uric Acid 5.3 mg/dL (3.5-8.5) 01/25/17 08:10 Calcium 9.4 mg/dl (8.6-10.4) 01/28/17 09:11 Phosphorus 2.7 mg/dL (2.5-4.5) 01/26/17 06:36 Magnesium 1.9 mg/dL (1.6-2.3) 01/27/17 06:24 Total Bilirubin 0.9 mg/dL (0.2-1.3) 01/28/17 09:11 Direct Bilirubin 0.2 mg/dL (0.0-0.4) 01/25/17 08:10 AST 76 U/L (17-59) H 01/28/17 09:11 ALT 38 U/L (21-72) 01/28/17 09:11 Alkaline Phosphatase 63 U/L (38-126) 01/28/17 09:11 Total Creatine Kinase 268 U/L (55-170) H 01/27/17 06:24 CK-MB (Mass) 6.21 ng/mL (0.0-3.38) H 01/27/17 06:24 Troponin I 14.8000 ng/mL (0.00-0.120) H* 01/25/17 22:59 Troponin I, Quant 6.5100 ng/mL (0.00-0.120) H* 01/27/17 06:24 Total Protein 8.1 g/dL (6.3-8.3) 01/28/17 09:11 Albumin 4.6 g/dL (3.5-5.0) 01/28/17 09:11 Globulin 3.4 gm/dL (2.2-3.9) 01/28/17 09:11 Albumin/Globulin Ratio 1.3 (1.0-2.1) 01/28/17 09:11 Triglycerides 83 mg/dL (0-149) D 01/25/17 08:10 Cholesterol 124 mg/dL (0-199) 01/25/17 08:10 LDL Cholesterol Direct 76 mg/dL (0-129) 01/25/17 08:10 HDL Cholesterol 34 mg/dL (30-70) 01/25/17 08:10 Urine Color Straw (YELLOW) 01/25/17 14:13 Urine Clarity Clear (Clear) 01/25/17 14:13 Urine pH 5.0 (5.0-8.0) 01/25/17 14:13 Ur Specific [place] 1.017 (1.003-1.030) 01/25/17 14:13 Urine Protein Negative mg/dL (NEGATIVE) 01/25/17 14:13 Urine Glucose (UA) Normal mg/dL (Normal) 01/25/17 14:13 Urine Ketones Negative mg/dL (NEGATIVE) 01/25/17 14:13 Urine Blood 1+ (NEGATIVE) H 01/25/17 14:13 Urine Nitrate Negative (NEGATIVE) 01/25/17 14:13 Urine Bilirubin Negative (NEGATIVE) 01/25/17 14:13 Urine Urobilinogen Normal mg/dL (0.2-1.0) 01/25/17 14:13 Ur Leukocyte Esterase Neg Elizabeth/uL (Negative) 01/25/17 14:13 Urine WBC (Auto) 1 /hpf (0-5) 01/25/17 14:13 Urine RBC (Auto) 1 /hpf (0-3) 01/25/17 14:13 Stool Occult Blood Negative (NEGATIVE) 01/27/17 11:13 Blood Type O POSITIVE 01/25/17 05:41 Antibody Screen Negative 01/25/17 05:41 - Hospital Course Hospital Course: As per admission documentation 01/25/17, Patient is a 66 y/o male with a PMH of HTN, HLD who comes to the ER with a CC of chest pain that he woke up with at 0430. Patient has never had this pain before. He says it is most on the left side. He was brought in by ambulance where he said the pain was 10/10. He was given 2 doses of SL nitro and the pain was reduced to a 8/10. In the ER a Code Heart was called and Dr. Feng was alerted. EKG showed ST elevations in the the Anterior and lateral leads. He was given 325mg ASA, 4g morphine, 180mg brillinta, heparin bolus 5000K and a heparin drip at a rate of 9.3. Patient was placed on oxygen and brought to the clinical laboratory service teacher. Hospital course, Patient was Code Heart due to acute Anterolateral STEMI, Cardio Dr. Feng consulted. Patient was taken to Instrumentation Supervisor for PCI. 1. L Main: Patent 2. LAD: Proximal 100% with HEATHER 0 flow 3. L Cx: Patent 4. RCA: Dominant and patent 5. LV : Post intervention: Normal EF. EDP 10, No AV gradient. LAD: Lesion fixed with 3.0 x 38 Xcience Alpine FLOR with excellent final angiographic result and HEATHER 3 flow. Patient had an EF of 55-60% during cath. Patient started on cardio- protective meds Coreg 3.125 bid, Enalpril 5mg bid, ASA 81mg daily , Brilianta 90mg bid, crestor 40mg daily, integrillin for 12 hr, continue home dose allopurinol. Patient placed into ICU following procedure and remained until 01/27 when he was transferred to telemetry. Patient was stable throughout the remainder of his stay following stent placement in proximal LAD. He was cleared by cardio on 01/28/17 and was discharged home. It was explained to the patient that needed to rest over the next week from any strenuous activity. It was also discussed that he would need to be on duel anti-platelet therapy for one year, and aspirin, statin, beta anton for the rest of his life. Patient was instructed to follow up with Dr. Feng as outpatient. Patient given prescriptions for 30 days with 1 refill each: Allopurinol 300mg PO daily Aspirin 81mg PO daily Atorvastatin 20mg PO HS Carvedilol 3.125mg PO BID Plavix 75mg PO daily Enalapril Maleate 5mg PO daily - Date & Time of H&P Date of H&P: 01/25/17 Time of H&P: 05:10 Discharge Exam - Head Exam Head Exam: ATRAUMATIC, NORMAL INSPECTION, NORMOCEPHALIC - Eye Exam Eye Exam: EOMI, Normal appearance - ENT Exam ENT Exam: Mucous Membranes Moist - Respiratory Exam Respiratory Exam: Clear to PA & Lateral, NORMAL BREATHING PATTERN. absent: Accessory Muscle Use, Rales, Rhonchi, Wheezes, Respiratory Distress - Cardiovascular Exam Cardiovascular Exam: REGULAR RHYTHM, +S1, +S2. absent: JVD - GI/Abdominal Exam GI & Abdominal Exam: Normal Bowel Sounds, Unremarkable. absent: Distended, Firm , Guarding, Hernia, Rigid Additional comments: Cath site in right groin C/D/I - Extremities Exam Extremities exam: normal inspection - Neurological Exam Neurological exam: Alert, Normal Gait, Oriented x3 - Psychiatric Exam Psychiatric exam: Normal Affect, Normal Mood - Skin Skin Exam: Dry, Normal Color, Warm Discharge Plan - Discharge Medications Prescriptions: Allopurinol [Zyloprim] 300 mg PO DAILY #30 tab Aspirin [Aspirin Chewable] 81 mg PO DAILY #30 chew Atorvastatin [Lipitor] 20 mg PO HS #30 tab Carvedilol [Coreg] 3.125 mg PO BID #60 tab Clopidogrel [Plavix] 75 mg PO DAILY #30 tab Enalapril Maleate [Vasotec] 5 mg PO DAILY #30 tab - Follow Up Plan Condition: STABLE Disposition: HOME/ ROUTINE Instructions: Allopurinol (By mouth), Enalapril (By mouth), Aspirin (By mouth) , Atorvastatin (By mouth), Carvedilol (By mouth), Clopidogrel (By mouth), Myocardial Infarction (DC) Additional Instructions: As tolerated <Regina Ascencio V - Last Filed: 01/28/17 20:51> Provider - Provider Date of Admission: 01/25/17 05:40 Attending physician: Regina Ascencio DO Time Spent in preparation of Discharge (in minutes): 31 Hospital Course - Lab Results Lab Results: Micro Results 01/25/17 06:00 Naris MRSA Culture (Admit) - Final MRSA NOT DETECTED Most Recent Lab Values WBC 13.0 K/uL (4.8-10.8) H 01/28/17 09:11 RBC 5.05 Mil/uL (4.40-5.90) 01/28/17 09:11 Hgb 15.1 g/dL (12.0-18.0) 01/28/17 09:11 Hct 43.8 % (35.0-51.0) 01/28/17 09:11 MCV 86.7 fL (80.0-94.0) 01/28/17 09:11 MCH 30.0 pg (27.0-31.0) 01/28/17 09:11 MCHC 34.6 g/dL (33.0-37.0) 01/28/17 09:11 RDW 13.2 % (11.5-14.5) 01/28/17 09:11 Plt Count 222 K/uL (130-400) 01/28/17 09:11 MPV 10.4 fL (7.2-11.7) 01/28/17 09:11 Neut % (Auto) 71.6 % (50.0-75.0) 01/28/17 09:11 Lymph % (Auto) 19.6 % (20.0-40.0) L 01/28/17 09:11 Metcalfe % (Auto) 8.5 % (0.0-10.0) 01/28/17 09:11 Eos % (Auto) 0.0 % (0.0-4.0) 01/28/17 09:11 Baso % (Auto) 0.3 % (0.0-2.0) 01/28/17 09:11 Neut # 9.3 K/uL (1.8-7.0) H 01/28/17 09:11 Lymph # 2.6 K/uL (1.0-4.3) 01/28/17 09:11 Metcalfe # 1.1 K/uL (0.0-0.8) H 01/28/17 09:11 Eos # 0.0 K/uL (0.0-0.7) 01/28/17 09:11 Baso # 0.0 K/uL (0.0-0.2) 01/28/17 09:11 PT 10.7 SECONDS (9.7-12.2) 01/25/17 05:36 INR 1.0 01/25/17 05:36 APTT 30 SECONDS (21-34) 01/25/17 05:36 Sodium 136 mmol/L (132-148) 01/28/17 09:11 Potassium 4.3 mmol/L (3.6-5.2) 01/28/17 09:11 Chloride 97 mmol/L (98-107) L 01/28/17 09:11 Carbon Dioxide 21 mmol/L (22-30) L 01/28/17 09:11 Anion Gap 22 (10-20) H 01/28/17 09:11 BUN 23 mg/dL (9-20) H 01/28/17 09:11 Creatinine 1.0 MG/DL (0.8-1.5) 01/28/17 09:11 Est GFR ( Amer) > 60 01/28/17 09:11 Est GFR (Non-Af Amer) > 60 01/28/17 09:11 POC Glucose (mg/dL) 129 mg/dL (65-110) H 01/25/17 07:56 Random Glucose 147 mg/dL (75-110) H 01/28/17 09:11 Hemoglobin A1c 5.5 % (4.2-6.5) 01/25/17 08:10 Uric Acid 5.3 mg/dL (3.5-8.5) 01/25/17 08:10 Calcium 9.4 mg/dl (8.6-10.4) 01/28/17 09:11 Phosphorus 2.7 mg/dL (2.5-4.5) 01/26/17 06:36 Magnesium 1.9 mg/dL (1.6-2.3) 01/27/17 06:24 Total Bilirubin 0.9 mg/dL (0.2-1.3) 01/28/17 09:11 Direct Bilirubin 0.2 mg/dL (0.0-0.4) 01/25/17 08:10 AST 76 U/L (17-59) H 01/28/17 09:11 ALT 38 U/L (21-72) 01/28/17 09:11 Alkaline Phosphatase 63 U/L (38-126) 01/28/17 09:11 Total Creatine Kinase 268 U/L (55-170) H 01/27/17 06:24 CK-MB (Mass) 6.21 ng/mL (0.0-3.38) H 01/27/17 06:24 Troponin I 14.8000 ng/mL (0.00-0.120) H* 01/25/17 22:59 Troponin I, Quant 6.5100 ng/mL (0.00-0.120) H* 01/27/17 06:24 Total Protein 8.1 g/dL (6.3-8.3) 01/28/17 09:11 Albumin 4.6 g/dL (3.5-5.0) 01/28/17 09:11 Globulin 3.4 gm/dL (2.2-3.9) 01/28/17 09:11 Albumin/Globulin Ratio 1.3 (1.0-2.1) 01/28/17 09:11 Triglycerides 83 mg/dL (0-149) D 01/25/17 08:10 Cholesterol 124 mg/dL (0-199) 01/25/17 08:10 LDL Cholesterol Direct 76 mg/dL (0-129) 01/25/17 08:10 HDL Cholesterol 34 mg/dL (30-70) 01/25/17 08:10 Urine Color Straw (YELLOW) 01/25/17 14:13 Urine Clarity Clear (Clear) 01/25/17 14:13 Urine pH 5.0 (5.0-8.0) 01/25/17 14:13 Ur Specific [place] 1.017 (1.003-1.030) 01/25/17 14:13 Urine Protein Negative mg/dL (NEGATIVE) 01/25/17 14:13 Urine Glucose (UA) Normal mg/dL (Normal) 01/25/17 14:13 Urine Ketones Negative mg/dL (NEGATIVE) 01/25/17 14:13 Urine Blood 1+ (NEGATIVE) H 01/25/17 14:13 Urine Nitrate Negative (NEGATIVE) 01/25/17 14:13 Urine Bilirubin Negative (NEGATIVE) 01/25/17 14:13 Urine Urobilinogen Normal mg/dL (0.2-1.0) 01/25/17 14:13 Ur Leukocyte Esterase Neg Elizabeth/uL (Negative) 01/25/17 14:13 Urine WBC (Auto) 1 /hpf (0-5) 01/25/17 14:13 Urine RBC (Auto) 1 /hpf (0-3) 01/25/17 14:13 Stool Occult Blood Negative (NEGATIVE) 01/27/17 11:13 Blood Type O POSITIVE 01/25/17 05:41 Antibody Screen Negative 01/25/17 05:41 Attending/Attestation - Attestation I have personally seen and examined this patient.: Yes I have fully participated in the care of the patient.: Yes I have reviewed all pertinent clinical information, including history, physical exam and plan: Yes Notes (Text): Patient seen, examined and case discussed with day-time resident. Patient seen this morning. Patient denies acute complaints. Patient reports anal irritation has subsided with Anusol per rectum and is on stool softners. Patient denies further episodes of bowel movement. Patient reports he is constipated. Patient denies chest pain, denies shortness of breathe, denies palpitations, denies abdominal pain, denies nausea, denies vomitting, and reports he is urinating well. Discussed with cardiology, patient is stable for discharge. Work excuse note provided by forest fire officer prior to discharge. Patient advised to call Dr Feng's office and discharge instructions per forest fire officer prior to discharge. Patient is medically stable for discharge. Per cardiology, patient is stable for discharge. Patient provided work excuse letter by cardiology to resume work this upcoming Thursday. Patient to follow-up with Dr. Feng and PMD, Dr. Dipak Kearney upon hospital discharge. Resident left message with PMD's office to inform of hospital discharge Discharge time spent: 31 min New Prescriptions: 1) Aspirin 81mg PO daily (30 tabs/1) 2) Coreg 3.125mg PO BID (60 tabs/1 refill) 3) Enalapril 5mg PO daily (30 tabs/1 refill) 4) Atorvastatin 20mg POqHS (30 tabs/1 refill) 5) Allopurinol 300mg PO daily (30 tabs/1 refill) 6) Plavix 75mg PO daily (30 tabs/1 refill) This is summary of patient's hospital discharge. Please refer details for EMR. Discharge Diagnoses: 1) Anterior STEMI, s/p cath 100% LAD occlusion, s/p long FLOR stent and thrombectomy * Cardiology (Dr. Feng) on board-->help appreciated * Per cardiology, recommend dual antiplatelet therapy for one year, then aspirin, statin, and beta blockers for life * Cath results * L Main: patent * LAD: proximal 100% with HEATHER 0 flow. Left Circumflex: patent; LAD: proximal 100% with HEATHER 0 flow; RCA: dominant and patent, LV: post intervention. Normal EF, EDP: 10 Medications during hospitalization: * Aspirin 81mg PO daily * Coreg 3.125mg PO BID * Plavix 75mg PO daily * Crestor 40mg POqHS * Enalapril 5mg PO daily * Echocardiogram (01/28/17): EF: 55-60%, mild to mod hypokinesis of the mid and apical anteroseptal wall segments. There is borderline to mild hypokinese of the anterior wall in the mid and apical wall segments. Transmitral doppler is Grade 1 abnormal relaxation. Mild concentric left ventricular hypertrophy. Aortic root and ascending aorta are borderline dilated (echo post [place]) * [id number] 5.5 * Lipid panel: T, cholestrol: 124, LDL: 76, HDL: 34 * Troponin: 7.4400-->39.500-->14.800-->8.2-->6.5 2) History of Hypertension * Coreg 3.125mg PO BID * Enalapril 5mg PO daily * Monitor vital signs and treat 3) History of Gout * Allopurinol 300mg PO daily 4) Hypokalemia * normal today 5) "Black stool" * Patient is constipated today * Occult blood X2: negative * H/H is stable no drop observed 6) DVT ppx * Heparin 5000 units subq 8 hours for DVT ppx 7) GI ppx * Pepcid 20mg IV Q 12hours for GI ppx
--- NOTE | 2017-01-29 11:56 | CARD ---
APPROVED REPORT EKG Measurement Heart [id number] <Conclusion> Normal sinus rhythm Septal infarct, age undetermined Abnormal ECG
--- NOTE | 2017-01-29 11:57 | CARD ---
APPROVED REPORT EKG Measurement Heart [id number] <Conclusion> Normal sinus rhythm Left axis deviation ST elevation, consider anterior injury or acute infarct ACUTE AR / STEMI Abnormal ECG
== END 2017-01-28 12:45 | disposition home or self-care (01) | DRG 247 ==
LOC: C.ER 05:04 → C.9I 05:40 → C.ER 05:52
PROVIDERS: ADMIT Hospitalist; ATTEND Hospitalist
PROC: 027034Z Dilation of Coronary Artery, One Artery with Drug-eluting Intraluminal Device, Percutaneous Approach (ICD-10-PCS; principal; 2017-01-25)
PROC: 4A023N7 Measurement of Cardiac Sampling and Pressure, Left Heart, Percutaneous Approach (ICD-10-PCS; 2017-01-25)
PROC: B2151ZZ Fluoroscopy of Left Heart using Low Osmolar Contrast (ICD-10-PCS; 2017-01-25)
PROC: B2111ZZ Fluoroscopy of Multiple Coronary Arteries using Low Osmolar Contrast (ICD-10-PCS; 2017-01-25)
DX: I21.09 ST elevation (STEMI) myocardial infarction involving other coronary artery of anterior wall (principal); I25.82 Chronic total occlusion of coronary artery; I25.10 Atherosclerotic heart disease of native coronary artery without angina pectoris; I10 Essential (primary) hypertension; E87.6 Hypokalemia; I51.7 Cardiomegaly; E78.00 Pure hypercholesterolemia, unspecified; E78.5 Hyperlipidemia, unspecified; K59.00 Constipation, unspecified; M10.9 Gout, unspecified; Z90.49 Acquired absence of other specified parts of digestive tract

== ENCOUNTER 2018-09-01 09:56 | Outpatient (CLI) | payer OTHER | END 2018-09-01 09:57 | disposition home or self-care (01) | LOC: C.PAT 09:56 ==